=== PATIENT | male | born 1940 | race American Indian/Alaskan Native ===

== ENCOUNTER 2019-06-27 01:22 | Inpatient (IN) | payer MEDICARE, OTHER ==
[2019-06-27] MEDS ORDERED: HYDROmorphone 1 MG/1 ML INJ IV ONE ×3 (03:15→05:18)
[2019-06-27] MEDS ORDERED: ONDANSETRON 4 MG/2 ML INJ IV ONE ×2 (03:15→03:58)
[2019-06-27 03:33] LABS: Hematocrit 31.1 % (35.5-45.6); Mean Corpuscular HGB Conc 32 % (32-34); Mean Corpuscular Volume 87 fl (84-94); Platelet Count 213 K/mm3 (140-440); Red Blood Count 3.59 M/mm3 (3.65-5.03)
[2019-06-27 03:40] LABS: Red Cell Distribution Width 20.6 % (13.2-15.2)
[2019-06-27] MEDS ORDERED: SODIUM CHLORIDE IRRI 500 ML 500 ML IR ONE (03:48)
[2019-06-27 04:16] LABS: Calcium 9.2 mg/dL (8.4-10.2)
[2019-06-27] MEDS ORDERED: INSULIN REGULAR, HUMAN 100 UNITS/1 ML IV ONE (05:00)
--- NOTE | 2019-06-27 05:12 | Cat Scan Report ---
CT abdomen pelvis wo con INDICATION / CLINICAL INFORMATION: hematuria, urine retention, past hx of prostate ca. TECHNIQUE: Routine CT of the abdomen and pelvis without contrast All CT scans at this location are performed usi ng CT dose reduction for ALARA by means of automated exposure control. COMPARISON: None available. FINDINGS: Abdomen and pelvis the liver, gallbladder, spleen pancreas adrenal glands are unremarkable There is moderate bilateral hydroureteronephrosis. No free air or free fluid. Sigmoid diverticulosis without diverticulitis A large amount of hemorrhage and clot is seen distending the urinary bladder. A Marina catheter is in place with the balloon within the urinary bladder lumen. The prostate is grossly unremarkable within the limits of the noncontrast technique. No abdominal aortic aneurysm. Mild thoracolumbar type degene rative changes. The lumbar spine fracture is identified. IMPRESSION: Large amount of acute appearing hemorrhage and clot distending the urinary bladder lumen and causing at least mild obstruction of both ureters causing moderate bilateral hydroureteronephrosi s, as above. The prostate is normal in size but grossly unremarkable. No significant pelvic adenopath y. Signer Name: Stephan Felix MD Signed: 06/27/2019 5:08 AM Workstation Name: [id number]
--- NOTE | 2019-06-27 05:25 | Emergency Department Report ---
ED Male HPI - General Chief complaint: Urogenital-Male Stated complaint: DIFF URINATING Time Seen by Provider: 06/27/19 03:14 Source: patient Mode of arrival: Ambulatory Limitations: No Limitations - History of Present Illness Initial comments: 79-year-old male with past medical history of aortic valve replacement (not on anticoagulation), asthma, diabetes, COPD, retention, and prostate cancer currently in remission presents to Hospital of complaints of difficulty urinating and hematuria. Yesterday patient had to strain to urinate and felt like he was not completely emptying his bladder. Today he had increased difficulty urinating with gross hematuria. Patient complains of 10/10 pain to his pain is suprapubic area. He denies complaints of fever, nausea, or vomiting. Pt does take an ASA 81 mg daily. History of prostate cancer in 2007 treated with radiation and currently in remission. Patient was admitted to the [facility] last week for lower extremity edema. Doctor's are affiliated with the [facility]. - Related Data Allergies Allergy/AdvReac Type Severity Reaction Status Date / Time No Known Allergies Allergy Verified 06/27/19 03:52 ED Review of Systems ROS: Stated complaint: DIFF URINATING Other details as noted in HPI Comment: All other systems reviewed and negative ED Past Medical Hx - Past Medical History Previous Medical History?: Yes Hx Hypertension: Yes Hx Heart Attack/AMI: Yes Hx Diabetes: Yes Hx of Cancer: Yes Hx Arthritis: Yes Hx Asthma: Yes Hx COPD: Yes Additional medical history: prostate CA, - Surgical History Past Surgical History?: Yes Hx Open Heart Surgery: Yes (aortic valve replacement) Additional Surgical History: Trach in past - Social History Smoking Status: Never Smoker Substance Use Type: None ED Physical Exam - General Limitations: No Limitations - Other Other exam information: General: No acute distress Head: Atraumatic Eyes: normal appearance ENT: Moist mucous membranes Neck: Normal appearance, no midline tenderness Chest: Clear to auscultation bilaterally CV: Regular rate and rhythm Abdomen: Soft, normal bowel sounds, suprapubic tenderness, nondistended, no rebound or guarding : No testicular tenderness, Marina placed in the ED with gross hematuria Back: Normal inspection Extremity: Normal inspection infection, full range of motion Neuro: Alert O x 3, no facial asymmetry, speech clear, no gross motor sensory deficit Psych: Appropriate behavior Skin: No rash ED Course Vital Signs 06/27/19 06/27/19 06/27/19 01:27 02:59 03:00 Temperature 98.3 F 98.3 F Pulse Rate 93 H 79 82 Respiratory 22 17 19 Rate Blood Pressure 134/55 166/76 Blood Pressure 130/70 [Left] O2 Sat by Pulse 97 99 99 Oximetry 06/27/19 06/27/19 04:00 04:30 Temperature Pulse Rate 78 84 Respiratory 11 L 17 Rate Blood Pressure 142/76 142/77 Blood Pressure [Left] O2 Sat by Pulse 96 95 Oximetry - Consultations Consultation #1: 06/27/19 05:[address] Levin urology, will consult during admission ED Medical Decision Making - Lab Data Result diagrams: 06/27/19 03:19 06/27/19 03:19 Lab Results 06/27/19 06/27/19 06/27/19 Range/Units 03:19 03:19 05:25 WBC 13.8 H (4.5-11.0) K/mm3 RBC 3.59 L (3.65-5.03) M/mm3 Hgb 10.0 L (11.8-15.2) gm/dl Hct 31.1 L (35.5-45.6) % MCV 87 (84-94) fl MCH 28 (28-32) pg MCHC 32 (32-34) % RDW 20.6 H (13.2-15.2) % Plt Count 213 (140-440) K/mm3 Sodium 136 L (137-145) mmol/L Potassium 4.4 (3.6-5.0) mmol/L Chloride 94.3 L (98-107) mmol/L Carbon Dioxide 25 (22-30) mmol/L Anion Gap 21 mmol/L BUN 49 H (9-20) mg/dL Creatinine 2.3 H (0.8-1.5) mg/dL Estimated GFR 34 ml/min BUN/Creatinine Ratio 21 % Glucose 344 H (75-100) mg/dL POC Glucose 349 H (70-105) Calcium 9.2 (8.4-10.2) mg/dL - Radiology Data Radiology results: report reviewed CT abdomen pelvis wo con INDICATION / CLINICAL INFORMATION: hematuria, urine retention, past hx of prostate ca. TECHNIQUE: Routine CT of the abdomen and pelvis without contrast All CT scans at this location are performed using CT dose reduction for ALARA by means of automated exposure control. COMPARISON: None available. FINDINGS: Abdomen and pelvis the liver, gallbladder, spleen pancreas adrenal glands are unremarkable There is moderate bilateral hydroureteronephrosis. No free air or free fluid. Sigmoid diverticulosis without diverticulitis A large amount of hemorrhage and clot is seen distending the urinary bladder. A Marina catheter is in place with the balloon within the urinary bladder lumen. The prostate is grossly unremarkable within the limits of the noncontrast technique. No abdominal aortic aneurysm. Mild thoracolumbar type degenerative changes. The lumbar spine fracture is identified. IMPRESSION: Large amount of acute appearing hemorrhage and clot distending the urinary bladder lumen and causing at least mild obstruction of both ureters causing moderate bilateral hydroureteronephrosis, as above. The prostate is normal in size but grossly unremarkable. No significant pelvic adenopathy. - Medical Decision Making Patient presents to the Hospital gross hematuria, urinary retention, and renal insufficiency with signs of hydronephrosis on CT. Patient denies known history of renal insufficiency. Patient also given insulin for uncontrolled diabetes - Differential Diagnosis UTI, cancer, hemorrhagic cystitis, coagulopathy Critical Care Time: No Critical care attestation.: If time is entered above; I have spent that time in minutes in the direct care of this critically ill patient, excluding procedure time. ED Disposition Clinical Impression: Hematuria, Urine retention, Renal insufficiency, Hx of prostatic malignancy, Uncontrolled diabetes mellitus Disposition: OP ADMIT IP TO THIS HOSP Is pt being admited?: Yes Condition: Stable Instructions: Diabetes Mellitus Type 2 in Adults (ED) Referrals: PRIMARY CARE, [Primary Care Provider] - 3-5 Days Time of Disposition: 05:25 (DR Yusuf/hosp)
[2019-06-27] MEDS ORDERED: SODIUM CHLORIDE 0.9% IRR 500 ML BOTTLE IR ONE (05:28)
[2019-06-27 05:51] LABS: Bacteria,Urine 1+ /HPF (Negative); Bilirubin,Urine NEG (Negative); Blood,Urine LG (Negative); Color,Urine Yellow (Yellow)
[2019-06-27 05:52] LABS: RBC,Urine > 182.0 /HPF (0.0-6.0)
[2019-06-27 06:24] LABS: Anisocytosis 1+; Basophils % (Manual) 0 % (0.0-1.8); Platelet Estimate Consistent w Auto; Total Cells Counted 100
--- NOTE | 2019-06-27 06:33 | History and Physical Report ---
History of Present Illness Date of examination: 06/27/19 History of present illness: 79-year-old man with a history of hypertension, diabetes, coronary artery disease, asthma, COPD, prostate cancer comes emergency room with complaints of of urinating blood and having difficulty urinating. Complain of lower abdominal pain over the bladder with started yesterday, sharp, constant, intensity 7/10, no radiation, can't identify exacerbating factor. Admits to fever. eview Of Systems: Constitutional: no weight loss, fever, chills Ears, eyes, nose, mouth and throat: no nasal congestion, no nasal discharge, no sinus pressure, blurry vision, diplopia Neck: No neck pain or rigidity. Cardiovascular: No palpitations, chest pain Respiratory: No shortness of breath, cough Gastrointestinal: No hematochezia, abdominal pain Genitourinary : no dysuria, frequency Musculoskeletal: no muscle ache , joint pain Integumentary: no rash, no pruritis Neurological: no parathesias, focal weakness Endocrine: no cold or heat intolerance, no polyuria or polydipsia Hematologic/Lymphatic: no easy bruising, no easy bleeding, no gland swelling Allergic/Immunologic: no urticaria, no angioedema. PAST MEDICAL HISTORY:hypertension, diabetes, coronary artery disease, asthma, [place] PD, prostate cancer PAST SURGICAL HISTORY: Valve replacement FAMILY HISTORY:hypertension, diabetes SOCIAL HISTORY: Denies tobacco, drugs, alcohol Medications and Allergies Allergies Allergy/AdvReac Type Severity Reaction Status Date / Time No Known Allergies Allergy Verified 06/27/19 03:52 Home Medications Medication Instructions Recorded Confirmed Last Taken Type Aspirin [Aspirin BABY CHEW TAB] 1 tab PO DAILY 06/27/19 06/27/19 Unknown History Atorvastatin Calcium [Lipitor] 1 tab PO DAILY 06/27/19 06/27/19 Unknown History Carvedilol [Coreg] 25 mg PO BID 06/27/19 06/27/19 Unknown History Insulin Aspart [Novolog Flexpen] 15 unit SQ DAILY 06/27/19 06/27/19 Unknown History Sertraline [Zoloft] 50 mg PO QDAY 06/27/19 06/27/19 Unknown History Terazosin HCl 1 tab PO QHS 06/27/19 06/27/19 Unknown History Torsemide [Demadex] 1 tab PO BID 06/27/19 06/27/19 Unknown History hydrALAZINE [Apresoline] 2 tab PO Q8HR 06/27/19 06/27/19 Unknown History Exam - Physical Exam Narrative exam: General Apperance: The patient sitting in bed no acute distress HEENT: Normocephalic, atraumatic. Pupils equally round and reactive to light, extraocular movement intact, and no sclericterus or JVD or thyromegaly or nodule. Neck supple, no carotid bruit, mucous membranes moist, no exudate or erythema Heart: S1-S2, regular is rhythm Lungs: Clear to auscultation bilaterally, breathing comfortable Abdomen: Positive bowel sounds, soft, nontender, nondistended, no organomegaly Extremities: No edema cyanosis clubbing Skin: no rash, nodule, warm and dry Neuro:CN 2 -12 intact, motor/sensory intact, speech is fluent - Constitutional Vitals: Temp Pulse Resp BP Pulse Ox 98.3 F 76 12 142/77 93 06/27/19 02:59 06/27/19 05:30 06/27/19 05:30 06/27/19 05:30 06/27/19 05:30 Results - Labs CBC & Chem 7: 06/27/19 03:19 06/27/19 03:19 Labs: Abnormal lab results 06/27/19 06/27/19 06/27/19 Range/Units 03:19 03:19 05:09 WBC 13.8 H (4.5-11.0) K/mm3 RBC 3.59 L (3.65-5.03) M/mm3 Hgb 10.0 L (11.8-15.2) gm/dl Hct 31.1 L (35.5-45.6) % RDW 20.6 H (13.2-15.2) % Seg Neuts % (Manual) 86.0 H (40.0-70.0) % Lymphocytes % (Manual) 10.0 L (13.4-35.0) % Seg Neutrophils # Man 11.9 H (1.8-7.7) K/mm3 Sodium 136 L (137-145) mmol/L Chloride 94.3 L (98-107) mmol/L BUN 49 H (9-20) mg/dL Creatinine 2.3 H (0.8-1.5) mg/dL Glucose 344 H (75-100) mg/dL POC Glucose (70-105) Urine WBC (Auto) 82.0 H (0.0-6.0) /HPF 06/27/19 Range/Units 05:25 WBC (4.5-11.0) K/mm3 RBC (3.65-5.03) M/mm3 Hgb (11.8-15.2) gm/dl Hct (35.5-45.6) % RDW (13.2-15.2) % Seg Neuts % (Manual) (40.0-70.0) % Lymphocytes % (Manual) (13.4-35.0) % Seg Neutrophils # Man (1.8-7.7) K/mm3 Sodium (137-145) mmol/L Chloride (98-107) mmol/L BUN (9-20) mg/dL Creatinine (0.8-1.5) mg/dL Glucose (75-100) mg/dL POC Glucose 349 H (70-105) Urine WBC (Auto) (0.0-6.0) /HPF - Imaging and Cardiology CT scan - abdomen: report reviewed CT scan - pelvis: report reviewed Assessment and Plan Assessment Hematuria Hydroureteronephrosis Tract infection Hypertension Coronary artery disease Diabetes COPD History of prostate cancer Plan Admit to medicine Start IV fluid, IV Rocephin, urology was consulted to see the patient Check fingersticks initiate insulin sliding site Continue appropriate outpatient medication DVT prophylaxis
[2019-06-27] MEDS ORDERED: ACETAMINOPHEN 325 MG TAB PO PRN (06:34)
[2019-06-27] MEDS ORDERED: DEXTROSE 50% IN WATER (25GM) 50 ML SYRINGE IV PRN (06:34)
[2019-06-27] MEDS ORDERED: MORPHINE 2 MG/1 ML INJ IV PRN (08:30)
[2019-06-27] MEDS ORDERED: ONDANSETRON 4 MG/2 ML INJ IV PRN (08:30)
[2019-06-27] MEDS: SODIUM CHLORIDE 0.45% 1000 ML 1,000 ML IV SCH (10:17)
[2019-06-27] MEDS: HYDROmorphone 1 MG/1 ML INJ IV PRN ×2 (11:18→16:20)
[2019-06-27] MEDS: INSULIN LISPRO 100 UNIT/ML SUB-Q SCH ×2 (11:37→18:30)
--- NOTE | 2019-06-27 13:06 | Consultation ---
History of Present Illness - Reason for Consult Consult date: 06/27/19 - History of Present Illness NEW PT TO OUR [facility] 79-year-old male with past medical history of aortic valve replacement (not on anticoagulation), asthma, diabetes, COPD, retention, and prostate cancer (TREATED IN [place]) currently in remission presents to Hospital of complaints of difficulty urinating and hematuria. Yesterday patient had to strain to urinate and felt like he was not completely emptying his bladder. Today he had increased difficulty urinating with gross hematuria. Patient complains of 10/10 pain to his pain is suprapubic area. He denies complaints of fever, nausea, or vomiting. Pt does take an ASA 81 mg daily. History of prostate cancer in 2007 treated with radiation and currently in remission. Patient was admitted to the [facility] last week for lower extremity edema. Doctor's are affiliated with the [place]. PT ALSO HAS A HEART VALVE CT abdomen pelvis wo con INDICATION / CLINICAL INFORMATION: hematuria, urine retention, past hx of prostate ca. TECHNIQUE: Routine CT of the abdomen and pelvis without contrast All CT scans at this location are performed using CT do se reduction for ALARA by means of automated exposure control. COMPARISON: None available. FINDINGS: Abdomen and pelvis the liver, gallbladder, spleen pancreas adrenal glands are unremarkable There is moderate bilateral hydroureteronephrosis. No free air or free fluid. Sigmoid diverticulosis without diverticulitis A large amount of hemorrhage and clot is seen distending the urinary bladder. A Charles catheter is in place with the balloon within the urinary bladder lumen. The prostate is grossly unremarkable within the limits of the noncontrast technique. No abdominal aortic aneurysm. Mild thoracolumbar type degenerative changes. The lumbar spine fracture is identified. IMPRESSION: Large amount of acute appearing hemorrhage and clot distending the urinary bladder lumen and causing at least mild obstruction of both ureters causing moderate bilateral hydroureteronephrosis, as above. The prostate is normal in size but grossly unremarkable. No significant pelvic adenopathy ABD SOFT UNCIRC PHALLUS----16F CHARLES CHNGE TO 26F --3WAY TO HARRIS DRIP (DARK URINE RETURN) A/P GROSS HEMATURIA CREATININE 2.3 CONTINUE CHARLES Medications and Allergies Allergies Allergy/AdvReac Type Severity Reaction Status Date / Time No Known Allergies Allergy Verified 06/27/19 03:52 Home Medications Medication Instructions Recorded Confirmed Last Taken Type Aspirin [Aspirin BABY CHEW TAB] 1 tab PO DAILY 06/27/19 06/27/19 Unknown History Atorvastatin Calcium [Lipitor] 1 tab PO DAILY 06/27/19 06/27/19 Unknown History Carvedilol [Coreg] 25 mg PO BID 06/27/19 06/27/19 Unknown History Insulin Aspart [Novolog Flexpen] 15 unit SQ DAILY 06/27/19 06/27/19 Unknown History Sertraline [Zoloft] 50 mg PO QDAY 06/27/19 06/27/19 Unknown History Terazosin HCl 1 tab PO QHS 06/27/19 06/27/19 Unknown History Torsemide [Demadex] 1 tab PO BID 06/27/19 06/27/19 Unknown History hydrALAZINE [Apresoline] 2 tab PO Q8HR 06/27/19 06/27/19 Unknown History Active Meds: Active Medications Acetaminophen (Tylenol) 650 mg PO Q4H PRN PRN Reason: Pain MILD(1-3)/Fever >100.5/SIFUENTES Dextrose (D50w (25gm) Syringe) 50 ml IV Q30MIN PRN PRN Reason: Hypoglycemia Hydromorphone HCl (Dilaudid) 1 mg IV Q3H PRN PRN Reason: Pain , Severe (7-10) Last Admin: 06/27/19 11:18 Dose: 1 mg Documented by: Sodium Chloride (Nacl 0.45% 1000 Ml) 1,000 mls @ 75 mls/hr IV DIRECT JONES Last Admin: 06/27/19 10:17 Dose: 75 mls/hr Documented by: Insulin Human Lispro (Humalog) 0 unit SUB-Q Q6HR JONES; Protocol Last Admin: 06/27/19 11:37 Dose: 5 unit Documented by: Ondansetron HCl (Zofran) 4 mg IV Q8H PRN PRN Reason: Nausea And Vomiting Last Admin: 06/27/19 08:26 Dose: 4 mg Documented by: Sodium Chloride (Sodium Chloride Flush Syringe 10 Ml) 10 ml IV BID JONES Last Admin: 06/27/19 10:22 Dose: 10 ml Documented by: Sodium Chloride (Sodium Chloride Flush Syringe 10 Ml) 10 ml IV PRN PRN PRN Reason: LINE FLUSH Stop: 07/07/19 06:33 Exam - Constitutional Vitals: Temp Pulse Resp BP Pulse Ox 98.3 F 74 18 144/68 94 06/27/19 02:59 06/27/19 10:00 06/27/19 11:18 06/27/19 09:05 06/27/19 10:00 Results - Labs CBC & Chem 7: 06/27/19 03:19 06/27/19 03:19 Labs: Abnormal lab results 06/27/19 06/27/19 06/27/19 Range/Units 03:19 03:19 05:09 WBC 13.8 H (4.5-11.0) K/mm3 RBC 3.59 L (3.65-5.03) M/mm3 Hgb 10.0 L (11.8-15.2) gm/dl Hct 31.1 L (35.5-45.6) % RDW 20.6 H (13.2-15.2) % Seg Neuts % (Manual) 86.0 H (40.0-70.0) % Lymphocytes % (Manual) 10.0 L (13.4-35.0) % Seg Neutrophils # Man 11.9 H (1.8-7.7) K/mm3 Sodium 136 L (137-145) mmol/L Chloride 94.3 L (98-107) mmol/L BUN 49 H (9-20) mg/dL Creatinine 2.3 H (0.8-1.5) mg/dL Glucose 344 H (75-100) mg/dL POC Glucose (70-105) Urine WBC (Auto) 82.0 H (0.0-6.0) /HPF 06/27/19 06/27/19 06/27/19 Range/Units 05:25 08:02 11:39 WBC (4.5-11.0) K/mm3 RBC (3.65-5.03) M/mm3 Hgb (11.8-15.2) gm/dl Hct (35.5-45.6) % RDW (13.2-15.2) % Seg Neuts % (Manual) (40.0-70.0) % Lymphocytes % (Manual) (13.4-35.0) % Seg Neutrophils # Man (1.8-7.7) K/mm3 Sodium (137-145) mmol/L Chloride (98-107) mmol/L BUN (9-20) mg/dL Creatinine (0.8-1.5) mg/dL Glucose (75-100) mg/dL POC Glucose 349 H 297 H 383 H (70-105) Urine WBC (Auto) (0.0-6.0) /HPF
--- NOTE | 2019-06-27 14:59 | Event Note ---
Date: 06/27/19 Patient was admitted earlier this morning for the management of hematuria and lower abdominal pain. Urology evaluated the patient. Continue management as outlined per H&P.
[2019-06-27] MEDS ORDERED: SODIUM CHLORIDE 0.9% IRR 1,000 ML BOTTLE IR PRN (16:40)
--- NOTE | 2019-06-27 18:22 | Anesthesia Consultation ---
Anesthesia Consult and Med Hx Date of service: 06/27/19 - Airway Anesthetic Teeth Evaluation: Poor (Unable to assess airway because patient drowsy and not cooperative) ROM Head & Neck: Adequate (Has had a trach in the past) - Pre-Operative Health Status ASA Pre-Surgery Classification: ASA4, Emergency Proposed Anesthetic Plan: General - Pulmonary Hx Smoking: No Hx Asthma: Yes COPD: Yes - Cardiovascular System Hx Hypertension: Yes Hx Coronary Artery Disease: Yes Hx Heart Attack/AMI: Yes Hx Valvular Heart Disease: Yes (AVR) - Endocrine Hx Renal Disease: Yes (CRI-Cr-2.3) Hx Insulin Dependent Diabetes: Yes (Uncontrolled-BS 380) - Other Systems Hx Cancer: Yes - Additional Comments Anesthesia Medical History Comments: EMERGENCY case per Dr. Cook and opening second OR. I spoke with patient's on the phone
--- NOTE | 2019-06-27 18:29 | Event Note ---
Date: 06/27/19 afternoon rounds pt bermudez not draining well won't irrigate pt distended needs cysto , clot retention - pt unsure what to do (pt received sedation prior to my visit) I spoke with on phone she gave consent to proceed
--- NOTE | 2019-06-27 19:11 | Anesthesia Day of Surgery ---
Anesthesia Day of Surgery - Day of Surgery Patient Examined: Yes Patient H&P Reviewed: Yes Patient is NPO: Yes
[2019-06-27] MEDS ORDERED: LIDOCAINE MPF (2%) 20 MG/1 ML VIAL 5 ML ONE (19:28)
[2019-06-27] MEDS ORDERED: ETOMIDATE 20 MG/10 ML INJ IV ONE (19:28)
[2019-06-27] MEDS ORDERED: fentaNYL 100 MCG/2 ML INJ ONE (19:28)
[2019-06-27 19:32] LABS: INR 1.13 (0.87-1.13)
[2019-06-27 19:33] LABS: Partial Thromboplastin Time 21.5 Sec. (24.2-36.6)
--- NOTE | 2019-06-27 20:17 | Post Operative Note ---
Date of procedure: 06/27/19 Pre-op diagnosis: clot retention, prostate cancer Post-op diagnosis: same Procedure: cysto, clot evacuation, cystogram Surgeon: MATTHEW PAREKH Estimated blood loss: 50-100ml (evacuated 500cc clot)
[2019-06-27] MEDS ORDERED: dexAMETHasone 20 MG/5 ML VIAL ONE (20:21)
[2019-06-27] MEDS ORDERED: SUCCINYLCHOLINE CHLORIDE 200 MG/10 ML INJ MDV ONE (20:21)
[2019-06-27] MEDS ORDERED: ONDANSETRON 4 MG/2 ML INJ ONE (20:21)
--- NOTE | 2019-06-27 20:32 | Fluoroscopy Report ---
3 fluoroscopic images submitted Indication: Intraoperative localization Impression: 3 images of the abdomen were submitted for documentation purposes with radiology involve patricia. Cystogram was performed utilizing approximately 30 mL of Omnipaque 300. Patient reportedly has a history of prostate cancer and clot evacuation was performed. Please refer to operative note for c omplete details. Fluoroscopic time: 0.1 minutes Signer Name: Hardeep Mendes MD Signed: 06/27/2019 8:28 PM Workstation Name: [id number]
[2019-06-27 21:06] LABS: Basophils # (Auto) 0.1 K/mm3 (0.0-0.1); Basophils % (Auto) 0.6 % (0.0-1.8); Hemoglobin 8.8 gm/dl (11.8-15.2); Lymphocytes # (Auto) 0.6 K/mm3 (1.2-5.4); Lymphocytes % (Auto) 3.8 % (13.4-35.0); Mean Corpuscular HGB Conc 32 % (32-34); Mean Corpuscular Volume 90 fl (84-94); Monocytes # (Auto) 0.9 K/mm3 (0.0-0.8); Monocytes % (Auto) 5.6 % (0.0-7.3); Red Blood Count 3.12 M/mm3 (3.65-5.03)
[2019-06-27 21:23] LABS: Calcium 8.6 mg/dL (8.4-10.2)
[2019-06-27] MEDS ORDERED: INSULIN REGULAR, HUMAN 100 UNITS/1 ML ONE (21:23)
[2019-06-27 21:28] LABS: Red Cell Distribution Width 20.9 % (13.2-15.2)
[2019-06-27] MEDS ORDERED: SODIUM CHLORIDE IRRI 1000 ML 1,000 ML IR ONE (21:28)
[2019-06-27 21:29] LABS: Platelet Count 192 K/mm3 (140-440)
--- NOTE | 2019-06-27 22:20 | Post Anesthesia Evaluation ---
- Post Anesthesia Evaluation Patient Participated: Yes Airway Patent: Yes Stable Respiratory Function: Yes Nausea/Vomiting: No Temp > 96.8F: Yes Pain Manageable: Yes Adequeate Hydration: Yes Anesthesia Complications: No Block Receding Appropriately: Not Applicable Patient on Ventilator: No
[2019-06-27] MEDS ORDERED: SODIUM CHLORIDE 0.9% 500 ML 500 ML IV ONE (23:40)
[2019-06-28] MEDS ORDERED: WATER FOR IRRIG STERILE 1,000 ML BOTTLE ONE (01:45)
[2019-06-28] MEDS ORDERED: SODIUM CHLORIDE 0.9% 500 ML 500 ML IV ONE (01:51)
--- NOTE | 2019-06-28 02:02 | Progress Note ---
Subjective Date of service: 06/28/19 Interval history: spoke with in pacu irrigated clots pink tinged 20cc in 30cc balloon A/P prostate ca s/p radiation diabetes heart valve (on ASA) stop ASA 6 pack platelets continue cross drip manual irrigation q 2hours & prn Objective - Constitutional Vitals: Vital Signs - 12hr 06/27/19 06/27/19 06/27/19 15:28 20:30 20:35 Temperature 97.4 F L Pulse Rate 97 H 93 H Respiratory 20 21 Rate Blood Pressure 149/69 123/59 O2 Sat by Pulse 95 95 93 Oximetry 06/27/19 06/27/19 06/27/19 20:40 20:45 20:50 Temperature Pulse Rate 93 H 93 H 96 H Respiratory 20 15 21 Rate Blood Pressure 126/54 132/58 153/72 O2 Sat by Pulse 94 93 94 Oximetry 06/27/19 06/27/19 06/27/19 20:55 21:00 21:15 Temperature Pulse Rate 94 H 96 H 94 H Respiratory 18 17 17 Rate Blood Pressure 162/70 153/79 149/74 O2 Sat by Pulse 93 93 93 Oximetry 06/27/19 06/27/19 06/27/19 21:30 21:45 22:00 Temperature 97.6 F Pulse Rate 99 H 102 H 98 H Respiratory 18 22 24 Rate Blood Pressure 119/67 114/72 123/79 O2 Sat by Pulse 93 96 92 Oximetry 06/27/19 06/27/19 06/27/19 22:15 22:30 22:45 Temperature Pulse Rate 103 H 96 H 97 H Respiratory 22 15 18 Rate Blood Pressure 115/79 126/68 142/83 O2 Sat by Pulse 96 92 95 Oximetry 06/27/19 06/27/19 06/27/19 22:52 23:00 23:30 Temperature 97.8 F Pulse Rate 95 H 106 H Respiratory 22 15 Rate Blood Pressure 135/73 151/84 O2 Sat by Pulse 98 98 Oximetry 06/28/19 06/28/19 00:00 00:15 Temperature 98 F Pulse Rate 108 H 101 H Respiratory 18 Rate Blood Pressure 109/67 139/83 O2 Sat by Pulse 93 Oximetry - Labs CBC & Chem 7: 06/27/19 Unknown 06/27/19 Unknown Labs: Abnormal lab results 06/27/19 06/27/19 06/27/19 Range/Units 00:20 03:19 03:19 WBC 13.8 H (4.5-11.0) K/mm3 RBC 3.59 L (3.65-5.03) M/mm3 Hgb 10.0 L (11.8-15.2) gm/dl Hct 31.1 L (35.5-45.6) % RDW 20.6 H (13.2-15.2) % Lymph % (Auto) (13.4-35.0) % Lymph # (1.2-5.4) K/mm3 [place] # (0.0-0.8) K/mm3 Seg Neutrophils % (40.0-70.0) % Seg Neuts % (Manual) 86.0 H (40.0-70.0) % Lymphocytes % (Manual) 10.0 L (13.4-35.0) % Seg Neutrophils # (1.8-7.7) K/mm3 Seg Neutrophils # Man 11.9 H (1.8-7.7) K/mm3 APTT (24.2-36.6) Sec. Sodium 136 L (137-145) mmol/L Chloride 94.3 L (98-107) mmol/L BUN 49 H (9-20) mg/dL Creatinine 2.3 H (0.8-1.5) mg/dL Glucose 344 H (75-100) mg/dL POC Glucose (70-105) Urine WBC (Auto) (0.0-6.0) /HPF Crossmatch See Detail 06/27/19 06/27/19 06/27/19 Range/Units 05:09 05:25 08:02 WBC (4.5-11.0) K/mm3 RBC (3.65-5.03) M/mm3 Hgb (11.8-15.2) gm/dl Hct (35.5-45.6) % RDW (13.2-15.2) % Lymph % (Auto) (13.4-35.0) % Lymph # (1.2-5.4) K/mm3 [place] # (0.0-0.8) K/mm3 Seg Neutrophils % (40.0-70.0) % Seg Neuts % (Manual) (40.0-70.0) % Lymphocytes % (Manual) (13.4-35.0) % Seg Neutrophils # (1.8-7.7) K/mm3 Seg Neutrophils # Man (1.8-7.7) K/mm3 APTT (24.2-36.6) Sec. Sodium (137-145) mmol/L Chloride (98-107) mmol/L BUN (9-20) mg/dL Creatinine (0.8-1.5) mg/dL Glucose (75-100) mg/dL POC Glucose 349 H 297 H (70-105) Urine WBC (Auto) 82.0 H (0.0-6.0) /HPF Crossmatch 06/27/19 06/27/19 06/27/19 Range/Units 11:39 17:53 18:41 WBC (4.5-11.0) K/mm3 RBC (3.65-5.03) M/mm3 Hgb (11.8-15.2) gm/dl Hct (35.5-45.6) % RDW (13.2-15.2) % Lymph % (Auto) (13.4-35.0) % Lymph # (1.2-5.4) K/mm3 [place] # (0.0-0.8) K/mm3 Seg Neutrophils % (40.0-70.0) % Seg Neuts % (Manual) (40.0-70.0) % Lymphocytes % (Manual) (13.4-35.0) % Seg Neutrophils # (1.8-7.7) K/mm3 Seg Neutrophils # Man (1.8-7.7) K/mm3 APTT 21.5 L (24.2-36.6) Sec. Sodium (137-145) mmol/L Chloride (98-107) mmol/L BUN (9-20) mg/dL Creatinine (0.8-1.5) mg/dL Glucose (75-100) mg/dL POC Glucose 383 H 380 H (70-105) Urine WBC (Auto) (0.0-6.0) /HPF Crossmatch 06/27/19 06/27/19 06/27/19 Range/Units 21:24 22:20 23:22 WBC (4.5-11.0) K/mm3 RBC (3.65-5.03) M/mm3 Hgb (11.8-15.2) gm/dl Hct (35.5-45.6) % RDW (13.2-15.2) % Lymph % (Auto) (13.4-35.0) % Lymph # (1.2-5.4) K/mm3 [place] # (0.0-0.8) K/mm3 Seg Neutrophils % (40.0-70.0) % Seg Neuts % (Manual) (40.0-70.0) % Lymphocytes % (Manual) (13.4-35.0) % Seg Neutrophils # (1.8-7.7) K/mm3 Seg Neutrophils # Man (1.8-7.7) K/mm3 APTT (24.2-36.6) Sec. Sodium (137-145) mmol/L Chloride (98-107) mmol/L BUN (9-20) mg/dL Creatinine (0.8-1.5) mg/dL Glucose (75-100) mg/dL POC Glucose 405 H 318 H 259 H (70-105) Urine WBC (Auto) (0.0-6.0) /HPF Crossmatch 06/27/19 06/27/19 Range/Units Unknown Unknown WBC 16.8 H (4.5-11.0) K/mm3 RBC 3.12 L (3.65-5.03) M/mm3 Hgb 8.8 L (11.8-15.2) gm/dl Hct 28.0 L (35.5-45.6) % RDW 20.9 H (13.2-15.2) % Lymph % (Auto) 3.8 L (13.4-35.0) % Lymph # 0.6 L (1.2-5.4) K/mm3 [place] # 0.9 H (0.0-0.8) K/mm3 Seg Neutrophils % 90.0 H (40.0-70.0) % Seg Neuts % (Manual) (40.0-70.0) % Lymphocytes % (Manual) (13.4-35.0) % Seg Neutrophils # 15.1 H (1.8-7.7) K/mm3 Seg Neutrophils # Man (1.8-7.7) K/mm3 APTT (24.2-36.6) Sec. Sodium (137-145) mmol/L Chloride 97.3 L (98-107) mmol/L BUN 60 H (9-20) mg/dL Creatinine 3.7 H D (0.8-1.5) mg/dL Glucose 360 H (75-100) mg/dL POC Glucose (70-105) Urine WBC (Auto) (0.0-6.0) /HPF Crossmatch Medications & Allergies - Medications Allergies/Adverse Reactions: Allergies No Known Allergies Allergy (Verified 06/27/19 03:52) Home Medications: Home Medications Medication Instructions Recorded Confirmed Last Taken Type Aspirin [Aspirin BABY CHEW TAB] 1 tab PO DAILY 06/27/19 06/27/19 Unknown History Atorvastatin Calcium [Lipitor] 1 tab PO DAILY 06/27/19 06/27/19 Unknown History Carvedilol [Coreg] 25 mg PO BID 06/27/19 06/27/19 Unknown History Insulin Aspart [Novolog Flexpen] 15 unit SQ DAILY 06/27/19 06/27/19 Unknown History Sertraline [Zoloft] 50 mg PO QDAY 06/27/19 06/27/19 Unknown History Terazosin HCl 1 tab PO QHS 06/27/19 06/27/19 Unknown History Torsemide [Demadex] 1 tab PO BID 06/27/19 06/27/19 Unknown History hydrALAZINE [Apresoline] 2 tab PO Q8HR 06/27/19 06/27/19 Unknown History Active Medications: Generic Name Dose Route Start Last Admin Trade Name Freq PRN Reason Stop Dose Admin Acetaminophen 650 mg 06/27/19 06:34 Tylenol PO Q4H PRN Pain MILD(1-3)/Fever >100.5/SIFUENTES Dextrose 50 ml 06/27/19 06:34 D50w (25gm) Syringe IV Q30MIN PRN Hypoglycemia Hydromorphone HCl 1 mg 06/27/19 10:41 06/27/19 16:20 Dilaudid IV 1 mg Q3H PRN Administration Pain , Severe (7-10) Sodium Chloride 1,000 mls @ 75 mls/hr 06/27/19 08:30 06/27/19 10:17 Nacl 0.45% 1000 Ml IV 75 mls/hr DIRECT JONES Administration Insulin Human Lispro 0 unit 06/27/19 12:00 06/27/19 18:30 Humalog SUB-Q 5 unit Q6HR JONES Administration Protocol Ondansetron HCl 4 mg 06/27/19 08:30 06/27/19 08:26 Zofran IV 4 mg Q8H PRN Administration Nausea And Vomiting Sodium Chloride 10 ml 06/27/19 10:00 06/27/19 10:22 Sodium Chloride Flush Syringe 10 Ml IV 10 ml BID JONES Administration Sodium Chloride 10 ml 06/27/19 06:34 Sodium Chloride Flush Syringe 10 Ml IV 07/07/19 06:33 PRN PRN LINE FLUSH Sodium Chloride 2,000 ml 06/27/19 14:00 Nacl 0.9% IR DIRECT JONES Sodium Chloride 1,000 ml 06/27/19 16:40 Nacl 0.9% IR PRN PRN Wound Care
[2019-06-28] MEDS ORDERED: FUROSEMIDE 40 MG/4 ML INJ IV ONE ×2 (03:22→08:00)
[2019-06-28] MEDS ORDERED: ALBUTEROL 2.5 MG/3 ML NEBU IH PRN (03:23)
--- NOTE | 2019-06-28 04:21 | Event Note ---
Date: 06/28/19 Called to bedside to assess patient. Patient was experiencing apneic episodes on nasal cannula. Patient has history of CODY with nocturnal use of BiPAP at home. Pt was placed on BiPaP with improvement. Pt has history of COPD. Ordered albuterol when necessary. On auscultation scattered crackles. Ordered one-time dose of IV Lasix.
[2019-06-28] MEDS ORDERED: SODIUM CHLORIDE 0.9% 250ML 250 ML ONE (05:17)
[2019-06-28 05:39] LABS: Hematocrit 27.3 % (35.5-45.6); Hemoglobin 8.7 gm/dl (11.8-15.2); Mean Corpuscular HGB Conc 32 % (32-34); Mean Corpuscular Volume 87 fl (84-94); Platelet Count 169 K/mm3 (140-440); Red Blood Count 3.14 M/mm3 (3.65-5.03); Red Cell Distribution Width 19.7 % (13.2-15.2)
[2019-06-28 05:55] LABS: Calcium 8.5 mg/dL (8.4-10.2)
[2019-06-28 06:55] LABS: Basophils % (Manual) 0 % (0.0-1.8); Eosinophils % (Manual) 0 % (0.0-4.3); Total Cells Counted 200
[2019-06-28 06:56] LABS: Anisocytosis 1+; Poikilocytosis 1+
[2019-06-28 06:57] LABS: Large Platelets 1+; Platelet Estimate Consistent w Auto
[2019-06-28] MEDS: INSULIN LISPRO 100 UNIT/ML SUB-Q SCH ×4 (07:30→18:16)
[2019-06-28] MEDS: SODIUM CHLORIDE 0.45% 1000 ML 1,000 ML IV SCH (07:32)
[2019-06-28] MEDS ORDERED: ceFAZolin/NS 1 GM/50 ML 1 GM/50 ML BAG IV SCH (09:21)
[2019-06-28] MEDS ORDERED: TORSEMIDE PO SCH (09:21)
[2019-06-28] MEDS ORDERED: TERAZOSIN HCL PO SCH (09:21)
[2019-06-28] MEDS: ALBUTEROL 2.5 MG/3 ML NEBU IH SCH ×2 (09:40→13:10)
[2019-06-28] MEDS ORDERED: INSULIN ASPART 15 UNIT SQ SCH (10:00)
[2019-06-28] MEDS ORDERED: ATORVASTATIN CALCIUM PO SCH (10:00)
[2019-06-28] MEDS: ceFAZolin/NS 1 GM/50 ML 1 GM/50 ML BAG IV SCH ×2 (12:20→22:59)
[2019-06-28] MEDS: SERTRALINE 50 MG TAB PO SCH (12:20)
[2019-06-28] MEDS: CARVEDILOL 25 MG TAB PO SCH ×3 (12:21→23:00)
[2019-06-28] MEDS: hydrALAZINE 25 MG TAB PO SCH ×3 (12:21→23:00)
[2019-06-28] MEDS ORDERED: ETOMIDATE 20 MG/10 ML INJ IV ONE ×3 (13:52→15:04)
[2019-06-28] MEDS ORDERED: LIDOCAINE MPF (2%) 20 MG/1 ML VIAL 5 ML ONE ×3 (13:53→15:04)
--- NOTE | 2019-06-28 14:01 | Event Note ---
Date: 06/28/19 1pm pt alittle uncomfortable abd distended bermudez difficult to irrigate laborer electroplating cancelled my platelet transfusion order pt needs cysto, clot evac pt with uncontrolled diabetes, s/p radiation for prostate ca, renal insuff, asa therapy for heart valve needs platelets
--- NOTE | 2019-06-28 14:15 | Operative Report ---
PREOPERATIVE DIAGNOSES: Clot retention. POSTOPERATIVE DIAGNOSES: Clot retention. PROCEDURE: Cystoscopy, clot evacuation, cystogram. SURGEON: Chip Cook MD ANESTHESIA: General. ESTIMATED BLOOD LOSS: Minimal. FLUIDS: Crystalloid. COMPLICATIONS: No complications. INDICATIONS: This patient is a 79-year-old gentleman presented to the Emergency Room in clot retention. [facility] No records were available. Per the patient, he has a history of prostate cancer, status post radiation therapy, diabetes, heart valve. Initially, he states he was on no anticoagulation therapy; however, he was on aspirin. Initially, a 16-Palestinian catheter was placed in the Emergency Room. On my exam, it clotted off. I exchanged it to a 26-Palestinian catheter, irrigated clear. Later in the day reevaluation, clot had reaccumulated despite a Jain drip, that point, he presents now for surgical intervention. DESCRIPTION OF PROCEDURE: The patient was taken to the operative suite, placed in a supine position. After adequate general anesthesia, placed in a dorsal lithotomy position, prepped and draped in a sterile fashion. Pancystourethroscopy was performed with a 22-Palestinian Storz cystoscope. Obvious clot. At that point, a 24-Palestinian sheath was placed, large volume clot, approximately 500 mL was evacuated from the bladder. Cystoscopy was then performed. No tumors, no stones were noted. Just some mild irritation of the bladder and prostate. No active bleeding could be appreciated. A 24-Palestinian 3-way catheter was placed to a Jain's drip. Rectal exam was benign. He was extubated and taken to recovery room. JOB# [id number] [facility]/KIM
[2019-06-28] MEDS ORDERED: fentaNYL 100 MCG/2 ML INJ ONE (15:05)
--- NOTE | 2019-06-28 15:20 | Progress Note ---
Assessment and Plan Assessment and plan: 79-year-old -[place] male with past medical history significant for prostate cancer status post radiation treatment presented to the emergency department complaining of hematuria. Hematuria - Urology consulted and did cystoscopy, after cystoscopy patient admitted to ICU - Catheterized - Management per urology - Urology ordered platelet transfusion, patient was on aspirin UTI - She is on cefazolin CHARO - Nephrology consulted Respiratory distress - Patient is on BiPAP DVT History Interval history: Patient was seen and evaluated this morning, patient was on BIPAP. Hospitalist Physical - Physical exam Narrative exam: Patient is on BiPAP. The patient appeared well nourished and normally developed. Vital signs as documented. Head exam is unremarkable. No scleral icterus . Neck is without jugular venous distension, thyromegaly, or carotid bruits. Lungs are clear to auscultation. Cardiac exam reveals regular rate and Rhythm. First and second heart sounds normal. No murmurs, rubs or gallops. Abdominal exam reveals normal bowel sounds, no masses, no organomegaly and no ao rtic enlargement. Extremities are nonedematous and both femoral and pedal pulses are normal. ; patient is catheterized and draining blood tinged urine. SOCIAL WORKER MASTERS: Alert - Constitutional Vitals: Temp Pulse Resp BP Pulse Ox 98.2 F 74 21 119/53 97 06/28/19 08:00 06/28/19 14:21 06/28/19 14:21 06/28/19 14:21 06/28/19 14:21 Results - Labs CBC & Chem 7: 06/28/19 04:59 06/28/19 04:59 Labs: Laboratory Last Values WBC 39.7 K/mm3 (4.5-11.0) H 06/28/19 04:59 RBC 3.14 M/mm3 (3.65-5.03) L 06/28/19 04:59 Hgb 8.7 gm/dl (11.8-15.2) L 06/28/19 04:59 Hct 27.3 % (35.5-45.6) L 06/28/19 04:59 MCV 87 fl (84-94) 06/28/19 04:59 MCH 28 pg (28-32) 06/28/19 04:59 MCHC 32 % (32-34) 06/28/19 04:59 RDW 19.7 % (13.2-15.2) H 06/28/19 04:59 Plt Count 169 K/mm3 (140-440) 06/28/19 04:59 Lymph % (Auto) 3.8 % (13.4-35.0) L 06/27/19 Unknown [place] % (Auto) 5.6 % (0.0-7.3) 06/27/19 Unknown Eos % (Auto) 0.0 % (0.0-4.3) 06/27/19 Unknown Baso % (Auto) 0.6 % (0.0-1.8) 06/27/19 Unknown Lymph # 0.6 K/mm3 (1.2-5.4) L 06/27/19 Unknown [place] # 0.9 K/mm3 (0.0-0.8) H 06/27/19 Unknown Eos # 0.0 K/mm3 (0.0-0.4) 06/27/19 Unknown Baso # 0.1 K/mm3 (0.0-0.1) 06/27/19 Unknown Add Manual Diff Complete 06/28/19 04:59 Total Counted 200 06/28/19 04:59 Seg Neutrophils % Block Engraver 06/28/19 04:59 Seg Neuts % (Manual) 98.0 % (40.0-70.0) H 06/28/19 04:59 Band Neutrophils % 0 % 06/28/19 04:59 Lymphocytes % (Manual) 1.0 % (13.4-35.0) L 06/28/19 04:59 Reactive Lymphs % (Man) 0 % 06/28/19 04:59 Monocytes % (Manual) 1.0 % (0.0-7.3) 06/28/19 04:59 Eosinophils % (Manual) 0 % (0.0-4.3) 06/28/19 04:59 Basophils % (Manual) 0 % (0.0-1.8) 06/28/19 04:59 Metamyelocytes % 0 % 06/28/19 04:59 Myelocytes % 0 % 06/28/19 04:59 Promyelocytes % 0 % 06/28/19 04:59 Blast Cells % 0 % 06/28/19 04:59 Nucleated RBC % Not Reportable 06/28/19 04:59 Seg Neutrophils # 15.1 K/mm3 (1.8-7.7) H 06/27/19 Unknown Seg Neutrophils # Man 38.9 K/mm3 (1.8-7.7) H 06/28/19 04:59 Band Neutrophils # 0.0 K/mm3 06/28/19 04:59 Lymphocytes # (Manual) 0.4 K/mm3 (1.2-5.4) L 06/28/19 04:59 Abs React Lymphs (Man) 0.0 K/mm3 06/28/19 04:59 Monocytes # (Manual) 0.4 K/mm3 (0.0-0.8) 06/28/19 04:59 Eosinophils # (Manual) 0.0 K/mm3 (0.0-0.4) 06/28/19 04:59 Basophils # (Manual) 0.0 K/mm3 (0.0-0.1) 06/28/19 04:59 Metamyelocytes # 0.0 K/mm3 06/28/19 04:59 Myelocytes # 0.0 K/mm3 06/28/19 04:59 Promyelocytes # 0.0 K/mm3 06/28/19 04:59 Blast Cells # 0.0 K/mm3 06/28/19 04:59 WBC Morphology Not Reportable 06/28/19 04:59 Hypersegmented Neuts Not Reportable 06/28/19 04:59 Hyposegmented Neuts Not Reportable 06/28/19 04:59 Hypogranular Neuts Not Reportable 06/28/19 04:59 Smudge Cells Not Reportable 06/28/19 04:59 Toxic Granulation Not Reportable 06/28/19 04:59 Toxic Vacuolation Not Reportable 06/28/19 04:59 Dohle Bodies Not Reportable 06/28/19 04:59 Pelger-Huet Anomaly Not Reportable 06/28/19 04:59 Zara Rods Not Reportable 06/28/19 04:59 Platelet Estimate Consistent w auto 06/28/19 04:59 Clumped Platelets Not Reportable 06/28/19 04:59 Plt Clumps, EDTA Not Reportable 06/28/19 04:59 Large Platelets 1+ 06/28/19 04:59 Giant Platelets Not Reportable 06/28/19 04:59 Platelet Satelliting Not Reportable 06/28/19 04:59 Plt Morphology Comment Not Reportable 06/28/19 04:59 RBC Morphology Not Reportable 06/28/19 04:59 Dimorphic RBCs Not Reportable 06/28/19 04:59 Polychromasia Not Reportable 06/28/19 04:59 Hypochromasia Not Reportable 06/28/19 04:59 Poikilocytosis 1+ 06/28/19 04:59 Anisocytosis 1+ 06/28/19 04:59 Microcytosis Not Reportable 06/28/19 04:59 Macrocytosis Not Reportable 06/28/19 04:59 Spherocytes Not Reportable 06/28/19 04:59 Pappenheimer Bodies Not Reportable 06/28/19 04:59 Sickle Cells Not Reportable 06/28/19 04:59 Target Cells Not Reportable 06/28/19 04:59 Tear Drop Cells Not Reportable 06/28/19 04:59 Ovalocytes Not Reportable 06/28/19 04:59 Helmet Cells Not Reportable 06/28/19 04:59 Carpenter-[place]olis Bodies Not Reportable 06/28/19 04:59 [place] Rings Not Reportable 06/28/19 04:59 Cooper Cells Not Reportable 06/28/19 04:59 Bite Cells Not Reportable 06/28/19 04:59 Crenated Cell Not Reportable 06/28/19 04:59 Elliptocytes Not Reportable 06/28/19 04:59 Acanthocytes (Spur) Not Reportable 06/28/19 04:59 Rouleaux Not Reportable 06/28/19 04:59 Hemoglobin C Crystals Not Reportable 06/28/19 04:59 Schistocytes Not Reportable 06/28/19 04:59 Malaria parasites Not Reportable 06/28/19 04:59 [place] Bodies Not Reportable 06/28/19 04:59 Hem Pathologist Commnt No 06/28/19 04:59 PT 14.4 Sec. (12.2-14.9) 06/27/19 18:41 INR 1.13 (0.87-1.13) 06/27/19 18:41 APTT 21.5 Sec. (24.2-36.6) L 06/27/19 18:41 Sodium 138 mmol/L (137-145) 06/28/19 04:59 Potassium 5.0 mmol/L (3.6-5.0) 06/28/19 04:59 Chloride 97.2 mmol/L (98-107) L 06/28/19 04:59 Carbon Dioxide 26 mmol/L (22-30) 06/28/19 04:59 Anion Gap 20 mmol/L 06/28/19 04:59 BUN 59 mg/dL (9-20) H 06/28/19 04:59 Creatinine 3.3 mg/dL (0.8-1.5) H 06/28/19 04:59 Estimated GFR 22 ml/min 06/28/19 04:59 BUN/Creatinine Ratio 18 % 06/28/19 04:59 Glucose 319 mg/dL (75-100) H 06/28/19 04:59 POC Glucose 275 (70-105) H 06/28/19 15:12 Calcium 8.5 mg/dL (8.4-10.2) 06/28/19 04:59 Urine Color Yellow (Yellow) 06/27/19 05:09 Urine Turbidity Turbid (Clear) 06/27/19 05:09 Urine pH 7.0 (5.0-7.0) 06/27/19 05:09 Ur Specific [place] 1.030 (1.003-1.030) 06/27/19 05:09 Urine Protein 100 mg/dl mg/dL (Negative) 06/27/19 05:09 Urine Glucose (UA) 150 mg/dL (Negative) 06/27/19 05:09 Urine Ketones Neg mg/dL (Negative) 06/27/19 05:09 Urine Blood Lg (Negative) 06/27/19 05:09 Urine Nitrite Neg (Negative) 06/27/19 05:09 Urine Bilirubin Neg (Negative) 06/27/19 05:09 Urine Urobilinogen 2.0 mg/dL (<2.0) 06/27/19 05:09 Ur Leukocyte Esterase Neg (Negative) 06/27/19 05:09 Urine WBC (Auto) 82.0 /HPF (0.0-6.0) H 06/27/19 05:09 Urine RBC (Auto) > 182.0 /HPF (0.0-6.0) 06/27/19 05:09 Urine Bacteria (Auto) 1+ /HPF (Negative) 06/27/19 05:09 Urine Yeast (Budding) 3+ /HPF 06/27/19 05:09 Blood Type AB POSITIVE 06/27/19 00:20 Antibody Screen Negative 06/27/19 00:20 Crossmatch See Detail 06/27/19 00:20 Active Medications - Current Medications Current Medications: Generic Name Dose Route Start Last Admin Trade Name Freq PRN Reason Stop Dose Admin Acetaminophen 650 mg 06/27/19 06:34 Tylenol PO Q4H PRN Pain MILD(1-3)/Fever >100.5/SIFUENTES Albuterol 2.5 mg 06/28/19 08:00 06/28/19 13:10 Proventil IH 2.5 mg TIDRT JONES Administration Atorvastatin Calcium 80 mg 06/28/19 22:00 Lipitor PO QHS JONES Carvedilol 25 mg 06/28/19 09:21 06/28/19 12:28 Coreg PO Not Given BID JONES Dextrose 50 ml 06/27/19 06:34 D50w (25gm) Syringe IV Q30MIN PRN Hypoglycemia Hydralazine HCl 50 mg 06/28/19 09:21 06/28/19 12:21 Apresoline PO Not Given Q8HR JONES Hydromorphone HCl 1 mg 06/27/19 10:41 06/27/19 16:20 Dilaudid IV 1 mg Q3H PRN Administration Pain , Severe (7-10) Sodium Chloride 1,000 mls @ 75 mls/hr 06/27/19 08:30 06/28/19 07:32 Nacl 0.45% 1000 Ml IV 75 mls/hr DIRECT JONES Administration Cefazolin Sodium 1 gm in 50 mls @ 100 mls/hr 06/28/19 11:00 06/28/19 12:20 Ancef/Ns 1 Gm/50 Ml IV 100 mls/hr Q12H JONES Administration Insulin Human Lispro 0 unit 06/27/19 12:00 06/28/19 12:24 Humalog SUB-Q 4 unit Q6HR JONES Administration Protocol Insulin Human Lispro 15 unit 06/28/19 10:00 06/28/19 12:27 Humalog SUB-Q 15 unit QAM JONES Administration Ondansetron HCl 4 mg 06/27/19 08:30 06/27/19 08:26 Zofran IV 4 mg Q8H PRN Administration Nausea And Vomiting Prazosin HCl 1 mg 06/28/19 22:00 Prazosin PO QHS JONES Sertraline HCl 50 mg 06/28/19 10:00 06/28/19 12:20 Zoloft PO 50 mg QDAY JONES Administration Sodium Chloride 10 ml 06/27/19 10:00 06/28/19 12:26 Sodium Chloride Flush Syringe 10 Ml IV 10 ml BID JONES Administration Sodium Chloride 10 ml 06/27/19 06:34 Sodium Chloride Flush Syringe 10 Ml IV 07/07/19 06:33 PRN PRN LINE FLUSH Sodium Chloride 2,000 ml 06/27/19 14:00 Nacl 0.9% IR DIRECT JONES Sodium Chloride 1,000 ml 06/27/19 16:40 Nacl 0.9% IR PRN PRN Wound Care Torsemide 20 mg 06/28/19 18:00 Demadex PO BID@0600,1800 JONES
[2019-06-28] MEDS ORDERED: ceFAZolin 1 GM VIAL ONE (15:43)
[2019-06-28] MEDS ORDERED: WATER FOR IRRIG STERILE 2000 ML IR ONE (16:00)
[2019-06-28] MEDS ORDERED: EPINEPHrine 1:10,000 1 MG/10 ML SYRINGE ONE ×2 (16:04→20:05)
--- NOTE | 2019-06-28 16:19 | Post Operative Note ---
Date of procedure: 06/28/19 Pre-op diagnosis: clot retention Post-op diagnosis: same Procedure: cysto, clot evac, cystogram Surgeon: MATTHEW PAREKH Estimated blood loss: other (2units clot) Condition: stable Disposition: PACU
--- NOTE | 2019-06-28 16:24 | Event Note ---
Date: 06/28/[address] Cook and he did evacuation of the blood and ordered platelets. patient was on aspirin and has platelet dysfunction. Oozing may not stop until he get platelets.
[2019-06-28] MEDS ORDERED: SODIUM CHLORIDE 0.9% 1000 ML 1,000 ML ONE ×2 (16:32→17:08)
[2019-06-28] MEDS ORDERED: INSULIN REGULAR, HUMAN 100 UNITS/1 ML IV ONE (16:50)
[2019-06-28] MEDS ORDERED: SODIUM CHLORIDE IRRI 1000 ML 1,000 ML IR ONE (16:52)
[2019-06-28] MEDS ORDERED: INSULIN REGULAR, HUMAN 100 UNITS/1 ML ONE (16:54)
--- NOTE | 2019-06-28 16:56 | Fluoroscopy Report ---
3 fluoroscopic images submitted Indication: Intraoperative localization Impression: 3 images of the abdomen were submitted for documentation purposes with radiology involve ment. Imaging provided for cystogram with reported blood clot evacuation. Please refer to the operat chavez note for complete details. 40 mL of Omnipaque 300 was utilized for this exam. Fluoroscopic time: 0.2 minutes Signer Name: Hardeep Mendes MD Signed: 06/28/2019 4:51 PM Workstation Name: [id number]
[2019-06-28 17:30] LABS: Hematocrit 24.8 % (35.5-45.6); Hemoglobin 7.8 gm/dl (11.8-15.2); Mean Corpuscular HGB Conc 32 % (32-34); Mean Corpuscular Volume 87 fl (84-94); Platelet Count 168 K/mm3 (140-440); Red Blood Count 2.83 M/mm3 (3.65-5.03); Red Cell Distribution Width 19.1 % (13.2-15.2)
--- NOTE | 2019-06-28 17:53 | Anesthesia Day of Surgery ---
Anesthesia Day of Surgery - Day of Surgery Patient Examined: Yes Patient H&P Reviewed: Yes Patient is NPO: Yes
[2019-06-28] MEDS: TORSEMIDE 10 MG TAB PO SCH (18:14)
[2019-06-28 18:58] LABS: Anisocytosis 1+; Basophils % (Manual) 0 % (0.0-1.8); Eosinophils % (Manual) 0 % (0.0-4.3); Macrocytosis Few; Monocytes % (Manual) 0 % (0.0-7.3); Platelet Estimate Consistent w Auto; Target Cells Rare; Total Cells Counted 100
--- NOTE | 2019-06-28 20:50 | Operative Report ---
PREOPERATIVE DIAGNOSIS: Clot retention. POSTOPERATIVE DIAGNOSES: Clot retention, platelet dysfunction, renal insufficiency, uncontrolled diabetes, prostate cancer, status post radiation therapy. INDICATIONS: This 79-year-old gentleman presented to the Emergency Room yesterday with clot retention. Ultimately, he was taken to the OR for clot evacuation yesterday. The patient is new to this facility. No records were available. Evacuated the clot, he was stable. Also was noted that he was on aspirin due to his heart valve. He has an artificial heart valve. Platelets were ordered; however, they were not given. On exam today, the patient was in clot retention again and had to be taken to the OR. Discussed with the patient and his . DESCRIPTION OF PROCEDURE: The patient was taken to the operative suite, placed in a supine position. After adequate general anesthesia, he was prepped and draped in a sterile fashion. The patient required pressors during the procedure. Cystoscopy was performed. Again, bladder with large amount of clot. A 24-Burmese resectoscope sheath was inserted. Large volume clot approximately 2 units was in his bladder, was sent for confirmation. This was evacuated out, vigorous clot evacuation. No active bleeding could be appreciated. No tumors, no stones, just some ____. A 24-Burmese 3-way catheter was placed, irrigated well. Cystogram, no extravasation. Marina in good position. He was taken to recovery room in guarded condition. JOB# [id number] [facility]/KIM
[2019-06-28] MEDS: PRAZOSIN 1 MG CAP PO SCH (22:59)
[2019-06-29 05:18] LABS: Hemoglobin 6.4 gm/dl (11.8-15.2); Mean Corpuscular HGB Conc 32 % (32-34); Mean Corpuscular Volume 87 fl (84-94); Platelet Count 132 K/mm3 (140-440); Red Blood Count 2.27 M/mm3 (3.65-5.03); Red Cell Distribution Width 19.3 % (13.2-15.2)
[2019-06-29 05:29] LABS: Calcium 7.7 mg/dL (8.4-10.2)
[2019-06-29 05:33] LABS: Hematocrit 19.9 % (35.5-45.6)
[2019-06-29] MEDS ORDERED: SODIUM CHLORIDE 0.9% 500 ML 500 ML IV ONE ×2 (06:17→11:37)
--- NOTE | 2019-06-29 06:19 | Event Note ---
Date: 06/29/19 hgb this am 6.4 ( trending down from 7.8) 1U PRBC ordered.
[2019-06-29] MEDS: TORSEMIDE 10 MG TAB PO SCH ×2 (06:36→18:46)
[2019-06-29] MEDS: hydrALAZINE 25 MG TAB PO SCH ×3 (06:36→22:32)
[2019-06-29] MEDS: INSULIN LISPRO 100 UNIT/ML SUB-Q SCH ×5 (06:42→18:41)
[2019-06-29] MEDS: ALBUTEROL 2.5 MG/3 ML NEBU IH SCH ×4 (07:11→20:45)
[2019-06-29 07:32] LABS: Total Cells Counted 100
[2019-06-29 07:33] LABS: Band Neutrophils # (Manual) 0.3 K/mm3; Basophils % (Manual) 0 % (0.0-1.8); Eosinophils % (Manual) 0 % (0.0-4.3); Macrocytosis Few; Monocytes % (Manual) 0 % (0.0-7.3)
[2019-06-29 07:34] LABS: Anisocytosis 1+; Poikilocytosis Few; Target Cells Rare
[2019-06-29 07:35] LABS: Platelet Estimate Consistent w Auto
--- NOTE | 2019-06-29 07:58 | Event Note ---
Date: 06/29/19 spoke with nurse Darek Menjivar this am pt resting well bermudez draining well - no clots, continue drip & manual irrigation Just starting 1 or 2 PRBCs I ordered post op yesterday 3pm ------now 8am/am Hb 6.4 Nurse states order just came through on computer (platelets started in pacu yesterday before I left bedside)
[2019-06-29] MEDS: CARVEDILOL 25 MG TAB PO SCH ×2 (10:36→22:32)
[2019-06-29] MEDS: ceFAZolin/NS 1 GM/50 ML 1 GM/50 ML BAG IV SCH ×2 (10:36→22:29)
[2019-06-29] MEDS: SERTRALINE 50 MG TAB PO SCH (10:37)
[2019-06-29] MEDS ORDERED: SODIUM CHLORIDE 0.9% 1000 ML 1,000 ML IV SCH (11:00)
--- NOTE | 2019-06-29 11:27 | Progress Note ---
Assessment and Plan Assessment and plan: 79-year-old -[place] male with past medical history significant for prostate cancer status post radiation treatment presented to the emergency department complaining of hematuria. Hematuria -s/p cystoscopy -mgx by urology Acute blood loss anemia -s/p evacuation by urology -status post blood transfusion with 2U of PRBCS -will monitor H/H UTI -on IV cefazolin -wbc level trending down, will monitor -urine culture neg so far CHARO -Probably secondary to obstructive uropathy -CT abdomen/pelvis showed bilateral hydro-ureteronephrosis -Nephrology consulted Metabolic acidosis -Likely secondary to the CHARO -Will monitor level Acute Respiratory distress post surgery -We will wean patient off BiPAP DM2 with hyperglycemia -Continue SSI and Lantus H/o platelet dysfunction -Platelet level >132k, will monitor -1 unit of platelet ordered Hyponatremia -on IVF, will monitor level Hypertension -Controlled CAD -stable H/o COPD/asthma -no acute exacerbation -cont neb tx H/o prostate cancer -for out-pt f/u DVT ppx: SCD Disp: d/c per clinical course History Interval history: Pt has no new complaint. He denies chest pain or SOB. Hospitalist Physical - Constitutional Vitals: Temp Pulse Resp BP Pulse Ox 98.5 F 71 22 121/56 100 06/29/19 09:20 06/29/19 10:36 06/29/19 09:20 06/29/19 10:36 06/29/19 09:20 General appearance: Present: no acute distress, obese - EENT Eyes: Present: PERRL, EOM intact ENT: hearing intact, clear oral mucosa - Neck Neck: Present: supple - Respiratory Respiratory effort: normal Respiratory: bilateral: rhonchi - Cardiovascular Rhythm: regular Heart Sounds: Present: S1 & S2 - Extremities Extremities: No edema - Abdominal General gastrointestinal: soft, non-tender, normal bowel sounds - Integumentary Integumentary: Present: clear, warm - Psychiatric Psychiatric: appropriate mood/affect - Neurologic Neurologic: CNII-XII intact Results - Labs CBC & Chem 7: 06/29/19 04:37 06/29/19 04:37 Labs: Laboratory Last Values WBC 25.9 K/mm3 (4.5-11.0) H 06/29/19 04:37 RBC 2.27 M/mm3 (3.65-5.03) L 06/29/19 04:37 Hgb 6.4 gm/dl (11.8-15.2) L 06/29/19 04:37 Hct 19.9 % (35.5-45.6) L* 06/29/19 04:37 MCV 87 fl (84-94) 06/29/19 04:37 MCH 28 pg (28-32) 06/29/19 04:37 MCHC 32 % (32-34) 06/29/19 04:37 RDW 19.3 % (13.2-15.2) H 06/29/19 04:37 Plt Count 132 K/mm3 (140-440) L 06/29/19 04:37 Lymph % (Auto) 3.8 % (13.4-35.0) L 06/27/19 Unknown [place] % (Auto) 5.6 % (0.0-7.3) 06/27/19 Unknown Eos % (Auto) 0.0 % (0.0-4.3) 06/27/19 Unknown Baso % (Auto) 0.6 % (0.0-1.8) 06/27/19 Unknown Lymph # 0.6 K/mm3 (1.2-5.4) L 06/27/19 Unknown [place] # 0.9 K/mm3 (0.0-0.8) H 06/27/19 Unknown Eos # 0.0 K/mm3 (0.0-0.4) 06/27/19 Unknown Baso # 0.1 K/mm3 (0.0-0.1) 06/27/19 Unknown Add Manual Diff Complete 06/29/19 04:37 Total Counted 100 06/29/19 04:37 Seg Neutrophils % [employer] 06/29/19 04:37 Seg Neuts % (Manual) 93.0 % (40.0-70.0) H 06/29/19 04:37 Band Neutrophils % 1.0 % 06/29/19 04:37 Lymphocytes % (Manual) 6.0 % (13.4-35.0) L 06/29/19 04:37 Reactive Lymphs % (Man) 0 % 06/29/19 04:37 Monocytes % (Manual) 0 % (0.0-7.3) 06/29/19 04:37 Eosinophils % (Manual) 0 % (0.0-4.3) 06/29/19 04:37 Basophils % (Manual) 0 % (0.0-1.8) 06/29/19 04:37 Metamyelocytes % 0 % 06/29/19 04:37 Myelocytes % 0 % 06/29/19 04:37 Promyelocytes % 0 % 06/29/19 04:37 Blast Cells % 0 % 06/29/19 04:37 Nucleated RBC % 1.0 % (0.0-0.9) H 06/29/19 04:37 Seg Neutrophils # 15.1 K/mm3 (1.8-7.7) H 06/27/19 Unknown Seg Neutrophils # Man 24.1 K/mm3 (1.8-7.7) H 06/29/19 04:37 Band Neutrophils # 0.3 K/mm3 06/29/19 04:37 Lymphocytes # (Manual) 1.6 K/mm3 (1.2-5.4) 06/29/19 04:37 Abs React Lymphs (Man) 0.0 K/mm3 06/29/19 04:37 Monocytes # (Manual) 0.0 K/mm3 (0.0-0.8) 06/29/19 04:37 Eosinophils # (Manual) 0.0 K/mm3 (0.0-0.4) 06/29/19 04:37 Basophils # (Manual) 0.0 K/mm3 (0.0-0.1) 06/29/19 04:37 Metamyelocytes # 0.0 K/mm3 06/29/19 04:37 Myelocytes # 0.0 K/mm3 06/29/19 04:37 Promyelocytes # 0.0 K/mm3 06/29/19 04:37 Blast Cells # 0.0 K/mm3 06/29/19 04:37 WBC Morphology Not Reportable 06/29/19 04:37 Hypersegmented Neuts Not Reportable 06/29/19 04:37 Hyposegmented Neuts Not Reportable 06/29/19 04:37 Hypogranular Neuts Not Reportable 06/29/19 04:37 Smudge Cells Not Reportable 06/29/19 04:37 Toxic Granulation Not Reportable 06/29/19 04:37 Toxic Vacuolation Not Reportable 06/29/19 04:37 Dohle Bodies Not Reportable 06/29/19 04:37 Pelger-Huet Anomaly Not Reportable 06/29/19 04:37 Zara Rods Not Reportable 06/29/19 04:37 Platelet Estimate Consistent w auto 06/29/19 04:37 Clumped Platelets Not Reportable 06/29/19 04:37 Plt Clumps, EDTA Not Reportable 06/29/19 04:37 Large Platelets Not Reportable 06/29/19 04:37 Giant Platelets Not Reportable 06/29/19 04:37 Platelet Satelliting Not Reportable 06/29/19 04:37 Plt Morphology Comment Not Reportable 06/29/19 04:37 RBC Morphology Not Reportable 06/29/19 04:37 Dimorphic RBCs Not Reportable 06/29/19 04:37 Polychromasia Not Reportable 06/29/19 04:37 Hypochromasia Not Reportable 06/29/19 04:37 Poikilocytosis Few 06/29/19 04:37 Anisocytosis 1+ 06/29/19 04:37 Microcytosis Not Reportable 06/29/19 04:37 Macrocytosis Few 06/29/19 04:37 Spherocytes Not Reportable 06/29/19 04:37 Pappenheimer Bodies Not Reportable 06/29/19 04:37 Sickle Cells Not Reportable 06/29/19 04:37 Target Cells Rare 06/29/19 04:37 Tear Drop Cells Not Reportable 06/29/19 04:37 Ovalocytes Not Reportable 06/29/19 04:37 Helmet Cells Not Reportable 06/29/19 04:37 [place] Bodies Not Reportable 06/29/19 04:37 [place] Rings Not Reportable 06/29/19 04:37 [place] Cells Not Reportable 06/29/19 04:37 Bite Cells Not Reportable 06/29/19 04:37 Crenated Cell Not Reportable 06/29/19 04:37 Elliptocytes Few 06/29/19 04:37 Acanthocytes (Spur) Not Reportable 06/29/19 04:37 Rouleaux Not Reportable 06/29/19 04:37 Hemoglobin C Crystals Not Reportable 06/29/19 04:37 Schistocytes Not Reportable 06/29/19 04:37 Malaria parasites Not Reportable 06/29/19 04:37 [place] Bodies Not Reportable 06/29/19 04:37 Hem Pathologist Commnt No 06/29/19 04:37 PT 14.4 Sec. (12.2-14.9) 06/27/19 18:41 INR 1.13 (0.87-1.13) 06/27/19 18:41 APTT 21.5 Sec. (24.2-36.6) L 06/27/19 18:41 Sodium 133 mmol/L (137-145) L 06/29/19 04:37 Potassium 4.4 mmol/L (3.6-5.0) 06/29/19 04:37 Chloride 100.0 mmol/L (98-107) 06/29/19 04:37 Carbon Dioxide 20 mmol/L (22-30) L 06/29/19 04:37 Anion Gap 17 mmol/L 06/29/19 04:37 BUN 67 mg/dL (9-20) H 06/29/19 04:37 Creatinine 3.9 mg/dL (0.8-1.5) H 06/29/19 04:37 Estimated GFR 18 ml/min 06/29/19 04:37 BUN/Creatinine Ratio 17 % 06/29/19 04:37 Glucose 204 mg/dL (75-100) H 06/29/19 04:37 POC Glucose 239 (70-105) H 06/29/19 05:50 Calcium 7.7 mg/dL (8.4-10.2) L 06/29/19 04:37 Phosphorus 5.10 mg/dL (2.5-4.5) H 06/29/19 04:37 Magnesium 2.20 mg/dL (1.7-2.3) 06/29/19 04:37 PTH Intact 177.9 pg/mL (15-65) H 06/29/19 04:37 Urine Color Yellow (Yellow) 06/27/19 05:09 Urine Turbidity Turbid (Clear) 06/27/19 05:09 Urine pH 7.0 (5.0-7.0) 06/27/19 05:09 Ur Specific [place] 1.030 (1.003-1.030) 06/27/19 05:09 Urine Protein 100 mg/dl mg/dL (Negative) 06/27/19 05:09 Urine Glucose (UA) 150 mg/dL (Negative) 06/27/19 05:09 Urine Ketones Neg mg/dL (Negative) 06/27/19 05:09 Urine Blood Lg (Negative) 06/27/19 05:09 Urine Nitrite Neg (Negative) 06/27/19 05:09 Urine Bilirubin Neg (Negative) 06/27/19 05:09 Urine Urobilinogen 2.0 mg/dL (<2.0) 06/27/19 05:09 Ur Leukocyte Esterase Neg (Negative) 06/27/19 05:09 Urine WBC (Auto) 82.0 /HPF (0.0-6.0) H 06/27/19 05:09 Urine RBC (Auto) > 182.0 /HPF (0.0-6.0) 06/27/19 05:09 Urine Bacteria (Auto) 1+ /HPF (Negative) 06/27/19 05:09 Urine Yeast (Budding) 3+ /HPF 06/27/19 05:09 Blood Type AB POSITIVE 06/27/19 00:20 Antibody Screen Negative 06/27/19 00:20 Crossmatch See Detail 06/27/19 00:20 Active Medications - Current Medications Current Medications: Generic Name Dose Route Start Last Admin Trade Name Freq PRN Reason Stop Dose Admin Acetaminophen 650 mg 06/27/19 06:34 Tylenol PO Q4H PRN Pain MILD(1-3)/Fever >100.5/SIFUENTES Albuterol 2.5 mg 06/28/19 08:00 06/29/19 07:25 Proventil IH Not Given TIDRT [facility] Atorvastatin Calcium 80 mg 06/28/19 22:00 06/28/19 22:59 Lipitor PO 80 mg QHS JONES Administration Carvedilol 12.5 mg 06/29/19 07:57 06/29/19 10:36 Coreg PO 12.5 mg BID JONES Administration Dextrose 50 ml 06/27/19 06:34 D50w (25gm) Syringe IV Q30MIN PRN Hypoglycemia Hydralazine HCl 50 mg 06/28/19 09:21 06/29/19 06:36 Apresoline PO 50 mg Q8HR JONES Administration Hydromorphone HCl 1 mg 06/27/19 10:41 06/27/19 16:20 Dilaudid IV 1 mg Q3H PRN Administration Pain , Severe (7-10) Cefazolin Sodium 1 gm in 50 mls @ 100 mls/hr 06/28/19 11:00 06/29/19 10:36 Ancef/Ns 1 Gm/50 Ml IV 100 mls/hr Q12H JONES Administration Sodium Chloride 1,000 mls @ 75 mls/hr 06/29/19 11:00 Nacl 0.9% 1000 Ml IV DIRECT JONES Insulin Glargine 20 units 06/28/19 22:00 Lantus SUB-Q QHS JONES Insulin Human Lispro 0 unit 06/27/19 12:00 06/29/19 06:42 Humalog SUB-Q 2 unit Q6HR JONES Administration Protocol Insulin Human Lispro 15 unit 06/28/19 10:00 06/29/19 10:37 Humalog SUB-Q 15 unit QAM JONES Administration Ondansetron HCl 4 mg 06/27/19 08:30 06/27/19 08:26 Zofran IV 4 mg Q8H PRN Administration Nausea And Vomiting Prazosin HCl 1 mg 06/28/19 22:00 06/28/19 22:59 Prazosin PO 1 mg QHS JONES Administration Sertraline HCl 50 mg 06/28/19 10:00 06/29/19 10:37 Zoloft PO 50 mg QDAY JONES Administration Sodium Chloride 10 ml 06/27/19 10:00 06/28/19 12:26 Sodium Chloride Flush Syringe 10 Ml IV 10 ml BID JONES Administration Sodium Chloride 10 ml 06/27/19 06:34 Sodium Chloride Flush Syringe 10 Ml IV 07/07/19 06:33 PRN PRN LINE FLUSH Sodium Chloride 2,000 ml 06/27/19 14:00 Nacl 0.9% IR DIRECT JONES Sodium Chloride 1,000 ml 06/27/19 16:40 Nacl 0.9% IR PRN PRN Wound Care Torsemide 20 mg 06/28/19 18:00 06/29/19 06:36 Demadex PO 20 mg BID@0600,1800 JONES Administration
--- NOTE | 2019-06-29 11:37 | Progress Note ---
Subjective Date of service: 06/29/19 Interval history: Pt resting well irrigated clots pink tinged 20cc in 30cc balloon Hb 6 this am----has received 1unit PRBCs after this reading pt needs a 2nd unit A/P prostate ca s/p radiation diabetes heart valve (on ASA) stop ASA 6 pack platelets -given yesterday in pacu continue cross drip manual irrigation q 2hours & prn give 2nd unit PRBC & check CBC discussed with nurse Objective - Constitutional Vitals: Vital Signs - 12hr 06/28/19 06/28/19 06/28/19 23:40 23:49 23:50 Temperature 98.7 F Pulse Rate 77 74 Pulse Rate [ From Monitor] Respiratory 13 14 Rate Blood Pressure 107/49 107/49 O2 Sat by Pulse 100 99 Oximetry 06/29/19 06/29/19 06/29/19 00:00 00:10 00:20 Temperature Pulse Rate 70 70 66 Pulse Rate [ 68 From Monitor] Respiratory 12 13 13 Rate Blood Pressure 103/49 103/49 103/49 O2 Sat by Pulse 99 98 96 Oximetry 06/29/19 06/29/19 06/29/19 00:30 00:37 00:40 Temperature Pulse Rate 66 67 Pulse Rate [ From Monitor] Respiratory 19 15 Rate Blood Pressure 112/48 112/48 O2 Sat by Pulse 96 98 97 Oximetry 06/29/19 06/29/19 06/29/19 00:50 01:00 01:10 Temperature Pulse Rate 68 68 70 Pulse Rate [ From Monitor] Respiratory 11 L 13 16 Rate Blood Pressure 112/48 102/45 102/45 O2 Sat by Pulse 94 93 95 Oximetry 06/29/19 06/29/19 06/29/19 01:20 01:30 01:40 Temperature Pulse Rate 69 70 69 Pulse Rate [ From Monitor] Respiratory 22 22 14 Rate Blood Pressure 102/45 112/51 112/51 O2 Sat by Pulse 97 96 96 Oximetry 06/29/19 06/29/19 06/29/19 01:50 02:00 02:10 Temperature Pulse Rate 70 75 75 Pulse Rate [ From Monitor] Respiratory 10 L 16 24 Rate Blood Pressure 112/51 106/47 106/47 O2 Sat by Pulse 97 97 96 Oximetry 06/29/19 06/29/19 06/29/19 02:20 02:30 02:40 Temperature Pulse Rate 74 76 70 Pulse Rate [ From Monitor] Respiratory 19 25 H 16 Rate Blood Pressure 106/47 114/46 114/46 O2 Sat by Pulse 94 96 96 Oximetry 06/29/19 06/29/19 06/29/19 02:50 03:00 03:10 Temperature Pulse Rate 74 73 73 Pulse Rate [ From Monitor] Respiratory 24 20 19 Rate Blood Pressure 114/46 123/46 123/46 O2 Sat by Pulse 97 99 99 Oximetry 06/29/19 06/29/19 06/29/19 03:20 03:30 03:40 Temperature Pulse Rate 73 74 75 Pulse Rate [ From Monitor] Respiratory 32 H 19 15 Rate Blood Pressure 123/46 110/50 110/50 O2 Sat by Pulse 98 96 94 Oximetry 06/29/19 06/29/19 06/29/19 03:48 03:50 04:00 Temperature 97.4 F L Pulse Rate 78 72 Pulse Rate [ 72 From Monitor] Respiratory 20 23 Rate Blood Pressure 110/50 114/52 O2 Sat by Pulse 93 96 Oximetry 06/29/19 06/29/19 06/29/19 04:10 04:20 04:30 Temperature Pulse Rate 77 76 77 Pulse Rate [ From Monitor] Respiratory 20 23 17 Rate Blood Pressure 114/52 114/52 117/50 O2 Sat by Pulse 90 92 97 Oximetry 06/29/19 06/29/19 06/29/19 04:40 04:50 05:00 Temperature Pulse Rate 79 76 72 Pulse Rate [ From Monitor] Respiratory 17 18 17 Rate Blood Pressure 117/50 117/50 118/51 O2 Sat by Pulse 94 98 99 Oximetry 06/29/19 06/29/19 06/29/19 05:10 05:20 05:24 Temperature Pulse Rate 76 75 76 Pulse Rate [ From Monitor] Respiratory 11 L 10 L 32 H Rate Blood Pressure 118/51 118/51 118/51 O2 Sat by Pulse 100 99 99 Oximetry 06/29/19 06/29/19 06/29/19 05:30 05:40 05:50 Temperature Pulse Rate 73 81 79 Pulse Rate [ From Monitor] Respiratory 31 H 25 H 22 Rate Blood Pressure 104/48 104/48 104/48 O2 Sat by Pulse 99 100 100 Oximetry 06/29/19 06/29/19 06/29/19 06:00 06:10 06:20 Temperature Pulse Rate 77 79 72 Pulse Rate [ From Monitor] Respiratory 24 26 H 20 Rate Blood Pressure 105/48 105/48 105/48 O2 Sat by Pulse 100 99 99 Oximetry 06/29/19 06/29/19 06/29/19 06:30 06:36 06:40 Temperature Pulse Rate 67 74 74 Pulse Rate [ From Monitor] Respiratory 23 28 H Rate Blood Pressure 102/51 102/51 102/51 O2 Sat by Pulse 97 97 Oximetry 06/29/19 06/29/19 06/29/19 06:50 07:00 07:10 Temperature Pulse Rate 75 75 74 Pulse Rate [ From Monitor] Respiratory 22 21 21 Rate Blood Pressure 102/51 103/51 103/51 O2 Sat by Pulse 96 96 98 Oximetry 06/29/19 06/29/19 06/29/19 07:11 07:20 07:26 Temperature 97.8 F Pulse Rate 80 72 76 Pulse Rate [ From Monitor] Respiratory 25 H 27 H 28 H Rate Blood Pressure 103/51 103/51 103/51 O2 Sat by Pulse 99 97 97 Oximetry 06/29/19 06/29/19 06/29/19 07:30 07:40 07:41 Temperature 97.5 F L Pulse Rate 73 76 77 Pulse Rate [ From Monitor] Respiratory 29 H 39 H 26 H Rate Blood Pressure 107/50 107/50 107/50 O2 Sat by Pulse 97 95 95 Oximetry 06/29/19 06/29/19 06/29/19 07:50 08:00 08:10 Temperature 97.8 F Pulse Rate 80 72 Pulse Rate [ 80 From Monitor] Respiratory 15 17 15 Rate Blood Pressure 107/50 99/54 99/54 O2 Sat by Pulse 99 99 98 Oximetry 06/29/19 06/29/19 06/29/19 08:11 08:20 08:30 Temperature 98.4 F Pulse Rate 77 79 73 Pulse Rate [ From Monitor] Respiratory 12 14 17 Rate Blood Pressure 99/54 99/54 107/50 O2 Sat by Pulse 97 97 98 Oximetry 06/29/19 06/29/19 06/29/19 08:40 08:41 08:50 Temperature 98.3 F Pulse Rate 73 73 76 Pulse Rate [ From Monitor] Respiratory 12 21 13 Rate Blood Pressure 130/50 130/50 130/50 O2 Sat by Pulse 98 93 94 Oximetry 06/29/19 06/29/19 06/29/19 09:00 09:11 09:20 Temperature 98.3 F 98.5 F Pulse Rate 75 75 73 Pulse Rate [ From Monitor] Respiratory 15 16 22 Rate Blood Pressure 129/54 129/54 132/61 O2 Sat by Pulse 97 99 100 Oximetry 06/29/19 10:36 Temperature Pulse Rate 71 Pulse Rate [ From Monitor] Respiratory Rate Blood Pressure 121/56 O2 Sat by Pulse Oximetry - Labs CBC & Chem 7: 06/29/19 04:37 06/29/19 04:37 Labs: Abnormal lab results 06/27/19 06/28/19 06/28/19 Range/Units 00:20 12:22 15:12 WBC (4.5-11.0) K/mm3 RBC (3.65-5.03) M/mm3 Hgb (11.8-15.2) gm/dl Hct (35.5-45.6) % RDW (13.2-15.2) % Plt Count (140-440) K/mm3 Seg Neuts % (Manual) (40.0-70.0) % Lymphocytes % (Manual) (13.4-35.0) % Nucleated RBC % (0.0-0.9) % Seg Neutrophils # Man (1.8-7.7) K/mm3 Lymphocytes # (Manual) (1.2-5.4) K/mm3 Sodium (137-145) mmol/L Carbon Dioxide (22-30) mmol/L BUN (9-20) mg/dL Creatinine (0.8-1.5) mg/dL Glucose (75-100) mg/dL POC Glucose 333 H 275 H (70-105) Calcium (8.4-10.2) mg/dL Phosphorus (2.5-4.5) mg/dL PTH Intact (15-65) pg/mL Crossmatch See Detail 06/28/19 06/28/19 06/28/19 Range/Units 17:12 17:12 18:14 WBC 33.7 H (4.5-11.0) K/mm3 RBC 2.83 L (3.65-5.03) M/mm3 Hgb 7.8 L (11.8-15.2) gm/dl Hct 24.8 L (35.5-45.6) % RDW 19.1 H (13.2-15.2) % Plt Count (140-440) K/mm3 Seg Neuts % (Manual) 88.0 H (40.0-70.0) % Lymphocytes % (Manual) 3.0 L (13.4-35.0) % Nucleated RBC % (0.0-0.9) % Seg Neutrophils # Man 29.7 H (1.8-7.7) K/mm3 Lymphocytes # (Manual) 1.0 L (1.2-5.4) K/mm3 Sodium 135 L (137-145) mmol/L Carbon Dioxide (22-30) mmol/L BUN 60 H (9-20) mg/dL Creatinine 3.9 H (0.8-1.5) mg/dL Glucose 218 H (75-100) mg/dL POC Glucose 128 H (70-105) Calcium 8.0 L (8.4-10.2) mg/dL Phosphorus (2.5-4.5) mg/dL PTH Intact (15-65) pg/mL Crossmatch 06/29/19 06/29/19 06/29/19 Range/Units 00:34 04:37 04:37 WBC 25.9 H (4.5-11.0) K/mm3 RBC 2.27 L (3.65-5.03) M/mm3 Hgb 6.4 L (11.8-15.2) gm/dl Hct 19.9 L* (35.5-45.6) % RDW 19.3 H (13.2-15.2) % Plt Count 132 L (140-440) K/mm3 Seg Neuts % (Manual) 93.0 H (40.0-70.0) % Lymphocytes % (Manual) 6.0 L (13.4-35.0) % Nucleated RBC % 1.0 H (0.0-0.9) % Seg Neutrophils # Man 24.1 H (1.8-7.7) K/mm3 Lymphocytes # (Manual) (1.2-5.4) K/mm3 Sodium 133 L (137-145) mmol/L Carbon Dioxide 20 L (22-30) mmol/L BUN 67 H (9-20) mg/dL Creatinine 3.9 H (0.8-1.5) mg/dL Glucose 204 H (75-100) mg/dL POC Glucose 203 H (70-105) Calcium 7.7 L (8.4-10.2) mg/dL Phosphorus 5.10 H (2.5-4.5) mg/dL PTH Intact (15-65) pg/mL Crossmatch 06/29/19 06/29/19 Range/Units 04:37 05:50 WBC (4.5-11.0) K/mm3 RBC (3.65-5.03) M/mm3 Hgb (11.8-15.2) gm/dl Hct (35.5-45.6) % RDW (13.2-15.2) % Plt Count (140-440) K/mm3 Seg Neuts % (Manual) (40.0-70.0) % Lymphocytes % (Manual) (13.4-35.0) % Nucleated RBC % (0.0-0.9) % Seg Neutrophils # Man (1.8-7.7) K/mm3 Lymphocytes # (Manual) (1.2-5.4) K/mm3 Sodium (137-145) mmol/L Carbon Dioxide (22-30) mmol/L BUN (9-20) mg/dL Creatinine (0.8-1.5) mg/dL Glucose (75-100) mg/dL POC Glucose 239 H (70-105) Calcium (8.4-10.2) mg/dL Phosphorus (2.5-4.5) mg/dL PTH Intact 177.9 H (15-65) pg/mL Crossmatch Medications & Allergies - Medications Allergies/Adverse Reactions: Allergies No Known Allergies Allergy (Verified 06/27/19 03:52) Home Medications: Home Medications Medication Instructions Recorded Confirmed Last Taken Type Aspirin [Aspirin BABY CHEW TAB] 1 tab PO DAILY 06/27/19 06/27/19 Unknown History Atorvastatin Calcium [Lipitor] 1 tab PO DAILY 06/27/19 06/27/19 Unknown History Carvedilol [Coreg] 25 mg PO BID 06/27/19 06/27/19 Unknown History Insulin Aspart [Novolog Flexpen] 15 unit SQ DAILY 06/27/19 06/27/19 Unknown History Sertraline [Zoloft] 50 mg PO QDAY 06/27/19 06/27/19 Unknown History Terazosin HCl 1 tab PO QHS 06/27/19 06/27/19 Unknown History Torsemide [Demadex] 1 tab PO BID 06/27/19 06/27/19 Unknown History hydrALAZINE [Apresoline] 2 tab PO Q8HR 06/27/19 06/27/19 Unknown History Active Medications: Generic Name Dose Route Start Last Admin Trade Name Freq PRN Reason Stop Dose Admin Acetaminophen 650 mg 06/27/19 06:34 Tylenol PO Q4H PRN Pain MILD(1-3)/Fever >100.5/SIFUENTES Albuterol 2.5 mg 06/28/19 08:00 06/29/19 07:25 Proventil IH Not Given TIDRT JONES Atorvastatin Calcium 80 mg 06/28/19 22:00 06/28/19 22:59 Lipitor PO 80 mg QHS JONES Administration Carvedilol 12.5 mg 06/29/19 07:57 06/29/19 10:36 Coreg PO 12.5 mg BID JONES Administration Dextrose 50 ml 06/27/19 06:34 D50w (25gm) Syringe IV Q30MIN PRN Hypoglycemia Hydralazine HCl 50 mg 06/28/19 09:21 06/29/19 06:36 Apresoline PO 50 mg Q8HR JONES Administration Hydromorphone HCl 1 mg 06/27/19 10:41 06/27/19 16:20 Dilaudid IV 1 mg Q3H PRN Administration Pain , Severe (7-10) Cefazolin Sodium 1 gm in 50 mls @ 100 mls/hr 06/28/19 11:00 06/29/19 10:36 Ancef/Ns 1 Gm/50 Ml IV 100 mls/hr Q12H JONES Administration Sodium Chloride 1,000 mls @ 75 mls/hr 06/29/19 11:00 Nacl 0.9% 1000 Ml IV DIRECT [facility] Insulin Glargine 20 units 06/28/19 22:00 Lantus SUB-Q QHS [facility] Insulin Human Lispro 0 unit 06/27/19 12:00 06/29/19 06:42 Humalog SUB-Q 2 unit Q6HR JONES Administration Protocol Insulin Human Lispro 15 unit 06/28/19 10:00 06/29/19 10:37 Humalog SUB-Q 15 unit QAM JONES Administration Ondansetron HCl 4 mg 06/27/19 08:30 06/27/19 08:26 Zofran IV 4 mg Q8H PRN Administration Nausea And Vomiting Prazosin HCl 1 mg 06/28/19 22:00 06/28/19 22:59 Prazosin PO 1 mg QHS JONES Administration Sertraline HCl 50 mg 06/28/19 10:00 06/29/19 10:37 Zoloft PO 50 mg QDAY JONES Administration Sodium Chloride 10 ml 06/27/19 10:00 06/28/19 12:26 Sodium Chloride Flush Syringe 10 Ml IV 10 ml BID JONES Administration Sodium Chloride 10 ml 06/27/19 06:34 Sodium Chloride Flush Syringe 10 Ml IV 07/07/19 06:33 PRN PRN LINE FLUSH Sodium Chloride 2,000 ml 06/27/19 14:00 Nacl 0.9% IR DIRECT JONES Sodium Chloride 1,000 ml 06/27/19 16:40 Nacl 0.9% IR PRN PRN Wound Care Torsemide 20 mg 06/28/19 18:00 06/29/19 06:36 Demadex PO 20 mg BID@0600,1800 JONES Administration
--- NOTE | 2019-06-29 11:50 | Consultation ---
History of Present Illness - Reason for Consult Consult date: 06/29/19 acute renal failure, chronic renal failure - History of Present Illness The patient is a 79 YO male with significant for Obesity, Hypertension, DM type 2, CAD, COPD, Prostate cancer, s/p Aortic valve replacement and CHF who presented to [facility] ED on 06/27/19 with complaints of blood in the urine and difficulty in urinating. He also reports nausea and lower abdominal pain. Patient denies any fever, chills, dysuria, diarrhea, cp, sob, worsening leg swelling, dizziness, rash or syncope. Patient was admitted to the [facility] last week for lower extremity edema. CT abdomen showed Large amount of acute appearing hemorrhage and clot distending the urinary bladder lumen and causing at least mild obstruction of both ureters causing moderate bilateral hydroureteronephrosis. Yesterday patient underwent cysto, clot evac and cystogram. Currently he is on [place] drip. Creatinine level was 2.3 on admission, increased to 3.9 today. Hb dropped to 6.4 today. Nephrology was consulted for further evaluation. Past History Past Medical History: COPD, diabetes, heart failure, hypertension, hyperlipidemia, other (Aortic valve replacement) Medications and Allergies Allergies Allergy/AdvReac Type Severity Reaction Status Date / Time No Known Allergies Allergy Verified 06/27/19 03:52 Home Medications Medication Instructions Recorded Confirmed Last Taken Type Aspirin [Aspirin BABY CHEW TAB] 1 tab PO DAILY 06/27/19 06/27/19 Unknown History Atorvastatin Calcium [Lipitor] 1 tab PO DAILY 06/27/19 06/27/19 Unknown History Carvedilol [Coreg] 25 mg PO BID 06/27/19 06/27/19 Unknown History Insulin Aspart [Novolog Flexpen] 15 unit SQ DAILY 06/27/19 06/27/19 Unknown History Sertraline [Zoloft] 50 mg PO QDAY 06/27/19 06/27/19 Unknown History Terazosin HCl 1 tab PO QHS 06/27/19 06/27/19 Unknown History Torsemide [Demadex] 1 tab PO BID 06/27/19 06/27/19 Unknown History hydrALAZINE [Apresoline] 2 tab PO Q8HR 06/27/19 06/27/19 Unknown History Active Meds: Active Medications Acetaminophen (Tylenol) 650 mg PO Q4H PRN PRN Reason: Pain MILD(1-3)/Fever >100.5/SIFUENTES Albuterol (Proventil) 2.5 mg IH TIDRT [facility] Last Admin: 06/29/19 07:25 Dose: Not Given Documented by: Atorvastatin Calcium (Lipitor) 80 mg PO QHS [facility] Last Admin: 06/28/19 22:59 Dose: 80 mg Documented by: Carvedilol (Coreg) 12.5 mg PO BID [facility] Last Admin: 06/29/19 10:36 Dose: 12.5 mg Documented by: Dextrose (D50w (25gm) Syringe) 50 ml IV Q30MIN PRN PRN Reason: Hypoglycemia Hydralazine HCl (Apresoline) 50 mg PO Q8HR [facility] Last Admin: 06/29/19 06:36 Dose: 50 mg Documented by: Hydromorphone HCl (Dilaudid) 1 mg IV Q3H PRN PRN Reason: Pain , Severe (7-10) Last Admin: 06/27/19 16:20 Dose: 1 mg Documented by: Cefazolin Sodium (Ancef/Ns 1 Gm/50 Ml) 1 gm in 50 mls @ 100 mls/hr IV Q12H [facility] Last Admin: 06/29/19 10:36 Dose: 100 mls/hr Documented by: Sodium Chloride (Nacl 0.9% 1000 Ml) 1,000 mls @ 75 mls/hr IV DIRECT [facility] Insulin Glargine (Lantus) 20 units SUB-Q QHS [facility] Insulin Human Lispro (Humalog) 0 unit SUB-Q Q6HR [facility]; Protocol Last Admin: 06/29/19 06:42 Dose: 2 unit Documented by: Insulin Human Lispro (Humalog) 15 unit SUB-Q QAM [facility] Last Admin: 06/29/19 10:37 Dose: 15 unit Documented by: Ondansetron HCl (Zofran) 4 mg IV Q8H PRN PRN Reason: Nausea And Vomiting Last Admin: 06/27/19 08:26 Dose: 4 mg Documented by: Prazosin HCl (Prazosin) 1 mg PO QHS [facility] Last Admin: 06/28/19 22:59 Dose: 1 mg Documented by: Sertraline HCl (Zoloft) 50 mg PO QDAY [facility] Last Admin: 06/29/19 10:37 Dose: 50 mg Documented by: Sodium Chloride (Sodium Chloride Flush Syringe 10 Ml) 10 ml IV BID [facility] Last Admin: 06/28/19 12:26 Dose: 10 ml Documented by: Sodium Chloride (Sodium Chloride Flush Syringe 10 Ml) 10 ml IV PRN PRN PRN Reason: LINE FLUSH Stop: 07/07/19 06:33 Sodium Chloride (Nacl 0.9%) 2,000 ml IR DIRECT [facility] Sodium Chloride (Nacl 0.9%) 1,000 ml IR PRN PRN PRN Reason: Wound Care Torsemide (Demadex) 20 mg PO BID@0600,1800 [facility] Last Admin: 06/29/19 06:36 Dose: 20 mg Documented by: Review of Systems Constitutional: no weight loss, no weight gain, no fever, no chills, no anorex ia, no weakness, no poor appetite Cardiovascular: edema, high blood pressure, leg edema, no chest pain, no orthopnea, no syncope, no lightheadedness, no shortness of breath Respiratory: cough, dyspnea on exertion Gastrointestinal: abdominal pain, nausea, no vomiting, no diarrhea, no melena Genitourinary Male: hematuria, urinary retention, no dysuria Rectal: no bleeding Musculoskeletal: no morning stiffness, no muscle weakness Integumentary: no rash, no wounds, no jaundice Neurological: no head injury, no paralysis, no weakness, no aphasia, no change in speech, no change in mentation, no confusion Exam - Vital Signs Vital signs: Vital Signs Temp Pulse Resp BP Pulse Ox 98.3 F 93 H 22 134/55 97 06/27/19 01:27 06/27/19 01:27 06/27/19 01:27 06/27/19 01:27 06/27/19 01:27 - General Appearance General appearance: well-developed, well-nourished, appears stated age, obese, other (not in distress) EENT: ATNC, PERRL, hearing intact, vision intact Neck: Present: neck supple, trachea midline Respiratory: Other (breath sounds appears coarse) Heart: regular, S1S2, no murmurs Gastrointestinal: Present: normoactive bowel sounds, obese, other (Marina catheter with bloody urine). Absent: tenderness, distended Integumentary: no rash, warm and dry Neurologic: no focal deficit, no asterixis, alert and oriented x3 Musculoskeletal: Present: other (Trace LE edema) Psychiatric: cooperative Results - Lab Results 06/29/19 04:37 06/29/19 04:37 Most recent lab results Calcium 7.7 mg/dL (8.4-10.2) L 06/29/19 04:37 Phosphorus 5.10 mg/dL (2.5-4.5) H 06/29/19 04:37 Magnesium 2.20 mg/dL (1.7-2.3) 06/29/19 04:37 Assessment and Plan 1. Acute kidney injury: CHARO likely secondary to obstrutcive uropathy. CT abdomen showed bilateral hydronephrosis. Although baseline renal function is unknown strongly suspected of CKD. Monitor renal function. Renal prognosis is guarded. Meds dosage based on GFR. Avoid nephrotoxic agents. 2. FEN: Metabolic acidosis, monitor. Volume status, will get CXR. Patient is on IV fluids and diuretics. Monitor lytes. 3. Obstrutive uropathy: Secondary to blood clot in the bladder. S/p cysto and clot evacuation. Followed by Urologist. 4. Acute blood loss Anemia: 2/2 hematuria. PRBC today. 5. Hematuria: H/o prostate cancer. 6. H/o aortic valve replacement and CHF: Monitor volume status. 7. DM type 2. 8. Hypertension.
--- NOTE | 2019-06-29 12:40 | XRay Report ---
CHEST 1 VIEW 12:25 PM INDICATION / CLINICAL INFORMATION: Respiratory distress. COMPARISON: None available. FINDINGS: SUPPORT DEVICES: None. HEART / MEDIASTINUM: There is a median sternotomy. The heart size is borderline. Pulmonary vasculatur e is normal for technique. LUNGS / PLEURA: There is minimal chronic appearing interstitial disease centrally. The lungs are othe rwise clear. There is no evidence of pleural effusion. No pneumothorax. ADDITIONAL FINDINGS: No significant additional findings. IMPRESSION: No acute findings. Signer Name: Yair Reaves MD Signed: 06/29/2019 12:36 PM Workstation Name: [id number]
[2019-06-29] MEDS ORDERED: WATER FOR IRRIG STERILE 2000 ML IR ONE (16:00)
[2019-06-29] MEDS: INSULIN GLARGINE 100 UNITS/ML SUB-Q SCH ×2 (16:15→22:37)
[2019-06-29 16:43] LABS: Hematocrit 24.7 % (35.5-45.6); Hemoglobin 8.2 gm/dl (11.8-15.2); Mean Corpuscular HGB Conc 33 % (32-34); Mean Corpuscular Volume 89 fl (84-94); Platelet Count 128 K/mm3 (140-440); Red Blood Count 2.77 M/mm3 (3.65-5.03); Red Cell Distribution Width 18.2 % (13.2-15.2)
[2019-06-29 17:54] LABS: Band Neutrophils # (Manual) 0.4 K/mm3; Basophils % (Manual) 0 % (0.0-1.8); Total Cells Counted 100
[2019-06-29 17:55] LABS: Anisocytosis 1+; Hypochromasia Few; Large Platelets Few; Platelet Estimate Consistent w Auto
[2019-06-29] MEDS: WATER FOR IRRIG STERILE 1,000 ML BOTTLE IR PRN (18:41)
[2019-06-29] MEDS: PRAZOSIN 1 MG CAP PO SCH (22:31)
[2019-06-30 05:08] LABS: Basophils % (Auto) 0.3 % (0.0-1.8); Eosinophils # (Auto) 0.3 K/mm3 (0.0-0.4); Hematocrit 24.3 % (35.5-45.6); Hemoglobin 7.9 gm/dl (11.8-15.2); Lymphocytes # (Auto) 1.3 K/mm3 (1.2-5.4); Mean Corpuscular HGB Conc 32 % (32-34); Mean Corpuscular Volume 91 fl (84-94); Monocytes # (Auto) 0.8 K/mm3 (0.0-0.8); Monocytes % (Auto) 5.1 % (0.0-7.3); Platelet Count 121 K/mm3 (140-440); Red Blood Count 2.68 M/mm3 (3.65-5.03); Red Cell Distribution Width 18.2 % (13.2-15.2)
[2019-06-30] MEDS: ALBUTEROL 2.5 MG/3 ML NEBU IH SCH ×3 (08:10→20:50)
[2019-06-30] MEDS: INSULIN LISPRO 100 UNIT/ML SUB-Q SCH ×5 (09:12→22:49)
[2019-06-30] MEDS: hydrALAZINE 25 MG TAB PO SCH ×3 (09:13→22:32)
[2019-06-30] MEDS: TORSEMIDE 10 MG TAB PO SCH ×2 (09:13→22:32)
[2019-06-30] MEDS: WATER FOR IRRIG STERILE 1,000 ML BOTTLE IR PRN (09:15)
--- NOTE | 2019-06-30 09:24 | Progress Note ---
Assessment and Plan 1. Acute kidney injury: CHARO likely secondary to obstrutcive uropathy. CT abdomen showed bilateral hydronephrosis. Although baseline renal function is unknown strongly suspected of CKD. Renal function is improving. Monitor renal function. Renal prognosis is guarded. Meds dosage based on GFR. Avoid nephrotoxic agents. 2. FEN: Metabolic acidosis, improved. Monitor lytes. 3. Obstrutive uropathy: Secondary to blood clot in the bladder. S/p cysto and clot evacuation. Followed by Urologist. 4. Acute blood loss Anemia: 2/2 hematuria. S/p PRBC. 5. Hematuria: H/o prostate cancer. 6. H/o aortic valve replacement and CHF: Monitor volume status. 7. DM type 2. 8. Hypertension. Examination: General appearance: well-developed, well-nourished, appears stated age, obese, not in distress HEENT: ATNC, ERICK, hearing intact, vision intact Neck: neck supple, trachea midline Respiratory: ctab Heart: regular, S1S2, no murmur Gastrointestinal: obese, normoactive bowel sounds, not tender Integumentary: no rash, warm and dry : Marina catheter with pink urine Neurologic: no focal deficit, no asterixis, slight confusion Ext: no edema Psychiatric: cooperative Subjective Date of service: 06/30/19 Interval history: Patient was seen and examined at the bedside. Objective - Vital Signs Vital signs: Vital Signs - 12hr 06/29/19 06/29/19 06/29/19 21:30 21:40 21:50 Temperature Pulse Rate 64 67 69 Pulse Rate [ Anterior Bilateral Throughout] Pulse Rate [ From Monitor] Respiratory 20 19 17 Rate Respiratory Rate [Anterior Bilateral Throughout] Blood Pressure 143/66 133/57 133/57 O2 Sat by Pulse 97 97 99 Oximetry 06/29/19 06/29/19 06/29/19 22:00 22:10 22:20 Temperature Pulse Rate 64 64 65 Pulse Rate [ Anterior Bilateral Throughout] Pulse Rate [ From Monitor] Respiratory 20 22 22 Rate Respiratory Rate [Anterior Bilateral Throughout] Blood Pressure 133/57 146/75 146/75 O2 Sat by Pulse 97 98 97 Oximetry 06/29/19 06/29/19 06/29/19 22:30 22:31 22:32 Temperature Pulse Rate 65 72 72 Pulse Rate [ Anterior Bilateral Throughout] Pulse Rate [ From Monitor] Respiratory 16 Rate Respiratory Rate [Anterior Bilateral Throughout] Blood Pressure 146/75 145/60 145/60 O2 Sat by Pulse 99 Oximetry 06/29/19 06/29/19 06/29/19 22:40 22:50 23:00 Temperature Pulse Rate 66 64 65 Pulse Rate [ Anterior Bilateral Throughout] Pulse Rate [ From Monitor] Respiratory 17 22 16 Rate Respiratory Rate [Anterior Bilateral Throughout] Blood Pressure 145/60 145/60 145/60 O2 Sat by Pulse 96 95 97 Oximetry 06/29/19 06/29/19 06/29/19 23:10 23:20 23:30 Temperature Pulse Rate 64 61 62 Pulse Rate [ Anterior Bilateral Throughout] Pulse Rate [ From Monitor] Respiratory 19 13 19 Rate Respiratory Rate [Anterior Bilateral Throughout] Blood Pressure 133/60 133/60 133/60 O2 Sat by Pulse 96 97 97 Oximetry 06/29/19 06/29/19 06/30/19 23:40 23:50 00:00 Temperature 98.9 F Pulse Rate 61 63 63 Pulse Rate [ Anterior Bilateral Throughout] Pulse Rate [ 75 From Monitor] Respiratory 18 19 18 Rate Respiratory Rate [Anterior Bilateral Throughout] Blood Pressure 111/39 111/39 111/39 O2 Sat by Pulse 97 97 98 Oximetry 06/30/19 06/30/19 06/30/19 00:10 00:20 00:30 Temperature Pulse Rate 67 62 61 Pulse Rate [ Anterior Bilateral Throughout] Pulse Rate [ From Monitor] Respiratory 18 19 29 H Rate Respiratory Rate [Anterior Bilateral Throughout] Blood Pressure 129/57 129/57 129/57 O2 Sat by Pulse 95 99 99 Oximetry 06/30/19 06/30/19 06/30/19 00:40 00:50 01:00 Temperature Pulse Rate 63 64 62 Pulse Rate [ Anterior Bilateral Throughout] Pulse Rate [ From Monitor] Respiratory 29 H 36 H 25 H Rate Respiratory Rate [Anterior Bilateral Throughout] Blood Pressure 134/52 134/52 134/52 O2 Sat by Pulse 97 99 98 Oximetry 06/30/19 06/30/19 06/30/19 01:10 01:20 01:30 Temperature Pulse Rate 62 61 61 Pulse Rate [ Anterior Bilateral Throughout] Pulse Rate [ From Monitor] Respiratory 26 H 24 18 Rate Respiratory Rate [Anterior Bilateral Throughout] Blood Pressure 128/54 128/54 128/54 O2 Sat by Pulse 99 97 98 Oximetry 06/30/19 06/30/19 06/30/19 01:40 01:50 02:00 Temperature Pulse Rate 65 62 65 Pulse Rate [ Anterior Bilateral Throughout] Pulse Rate [ From Monitor] Respiratory 18 26 H 24 Rate Respiratory Rate [Anterior Bilateral Throughout] Blood Pressure 116/53 116/53 122/54 O2 Sat by Pulse 97 96 96 Oximetry 06/30/19 06/30/19 06/30/19 02:10 02:20 02:30 Temperature Pulse Rate 63 60 66 Pulse Rate [ Anterior Bilateral Throughout] Pulse Rate [ From Monitor] Respiratory 23 25 H 24 Rate Respiratory Rate [Anterior Bilateral Throughout] Blood Pressure 116/53 116/53 116/53 O2 Sat by Pulse 94 95 85 Oximetry 06/30/19 06/30/19 06/30/19 02:40 02:50 03:00 Temperature Pulse Rate 64 60 66 Pulse Rate [ Anterior Bilateral Throughout] Pulse Rate [ From Monitor] Respiratory 23 19 24 Rate Respiratory Rate [Anterior Bilateral Throughout] Blood Pressure 122/53 122/53 122/53 O2 Sat by Pulse 97 96 82 L Oximetry 06/30/19 06/30/19 06/30/19 03:10 03:20 03:30 Temperature Pulse Rate 61 62 61 Pulse Rate [ Anterior Bilateral Throughout] Pulse Rate [ From Monitor] Respiratory 33 H 21 22 Rate Respiratory Rate [Anterior Bilateral Throughout] Blood Pressure 122/53 122/53 122/53 O2 Sat by Pulse 92 84 87 Oximetry 06/30/19 06/30/19 06/30/19 03:32 03:40 03:50 Temperature Pulse Rate 69 61 60 Pulse Rate [ Anterior Bilateral Throughout] Pulse Rate [ From Monitor] Respiratory 18 19 22 Rate Respiratory Rate [Anterior Bilateral Throughout] Blood Pressure 138/48 126/48 126/48 O2 Sat by Pulse 98 98 98 Oximetry 06/30/19 06/30/19 06/30/19 03:57 04:00 04:10 Temperature 98.5 F Pulse Rate 59 L 63 Pulse Rate [ Anterior Bilateral Throughout] Pulse Rate [ 82 From Monitor] Respiratory 30 H 19 Rate Respiratory Rate [Anterior Bilateral Throughout] Blood Pressure 126/48 124/54 O2 Sat by Pulse 97 97 Oximetry 06/30/19 06/30/19 06/30/19 04:20 04:30 04:40 Temperature Pulse Rate 61 66 65 Pulse Rate [ Anterior Bilateral Throughout] Pulse Rate [ From Monitor] Respiratory 25 H 19 19 Rate Respiratory Rate [Anterior Bilateral Throughout] Blood Pressure 124/54 124/54 124/54 O2 Sat by Pulse 89 98 99 Oximetry 06/30/19 06/30/19 06/30/19 04:50 05:00 05:10 Temperature Pulse Rate 66 60 66 Pulse Rate [ Anterior Bilateral Throughout] Pulse Rate [ From Monitor] Respiratory 20 18 17 Rate Respiratory Rate [Anterior Bilateral Throughout] Blood Pressure 124/54 124/54 101/53 O2 Sat by Pulse 96 98 97 Oximetry 06/30/19 06/30/19 06/30/19 05:20 05:30 05:39 Temperature Pulse Rate 75 64 Pulse Rate [ Anterior Bilateral Throughout] Pulse Rate [ From Monitor] Respiratory 20 20 Rate Respiratory Rate [Anterior Bilateral Throughout] Blood Pressure 101/53 101/53 O2 Sat by Pulse 96 96 95 Oximetry 06/30/19 06/30/19 06/30/19 05:40 05:50 06:00 Temperature Pulse Rate 62 60 62 Pulse Rate [ Anterior Bilateral Throughout] Pulse Rate [ From Monitor] Respiratory 21 21 20 Rate Respiratory Rate [Anterior Bilateral Throughout] Blood Pressure 124/51 124/51 124/51 O2 Sat by Pulse 95 96 96 Oximetry 06/30/19 06/30/19 06/30/19 06:10 06:20 06:30 Temperature Pulse Rate 62 62 61 Pulse Rate [ Anterior Bilateral Throughout] Pulse Rate [ From Monitor] Respiratory 20 20 21 Rate Respiratory Rate [Anterior Bilateral Throughout] Blood Pressure 117/52 117/52 117/52 O2 Sat by Pulse 94 94 95 Oximetry 06/30/19 06/30/19 06/30/19 06:40 06:50 07:00 Temperature Pulse Rate 67 75 61 Pulse Rate [ Anterior Bilateral Throughout] Pulse Rate [ From Monitor] Respiratory 18 18 15 Rate Respiratory Rate [Anterior Bilateral Throughout] Blood Pressure 117/52 117/52 117/52 O2 Sat by Pulse 96 86 96 Oximetry 06/30/19 06/30/19 06/30/19 07:10 07:20 07:30 Temperature Pulse Rate 58 L 62 66 Pulse Rate [ Anterior Bilateral Throughout] Pulse Rate [ From Monitor] Respiratory 20 16 14 Rate Respiratory Rate [Anterior Bilateral Throughout] Blood Pressure 119/59 119/59 119/59 O2 Sat by Pulse 97 94 96 Oximetry 06/30/19 06/30/19 06/30/19 07:40 07:50 08:00 Temperature 97.2 F L Pulse Rate 65 59 L 63 Pulse Rate [ 68 Anterior Bilateral Throughout] Pulse Rate [ From Monitor] Respiratory 18 15 19 Rate Respiratory 20 Rate [Anterior Bilateral Throughout] Blood Pressure 128/58 128/58 128/58 O2 Sat by Pulse 97 97 97 Oximetry 06/30/19 06/30/19 06/30/19 08:10 08:16 08:20 Temperature Pulse Rate 71 64 Pulse Rate [ Anterior Bilateral Throughout] Pulse Rate [ From Monitor] Respiratory 19 19 Rate Respiratory Rate [Anterior Bilateral Throughout] Blood Pressure 117/55 117/55 O2 Sat by Pulse 93 96 96 Oximetry 06/30/19 06/30/19 06/30/19 08:30 08:40 08:50 Temperature Pulse Rate 66 66 67 Pulse Rate [ Anterior Bilateral Throughout] Pulse Rate [ From Monitor] Respiratory 18 21 13 Rate Respiratory Rate [Anterior Bilateral Throughout] Blood Pressure 117/55 167/63 167/63 O2 Sat by Pulse 100 99 99 Oximetry 06/30/19 06/30/19 06/30/19 09:00 09:10 09:20 Temperature Pulse Rate 73 69 67 Pulse Rate [ Anterior Bilateral Throughout] Pulse Rate [ From Monitor] Respiratory 14 23 24 Rate Respiratory Rate [Anterior Bilateral Throughout] Blood Pressure 167/63 157/66 167/63 O2 Sat by Pulse 96 98 97 Oximetry - Lab 06/30/19 04:23 06/30/19 04:23 Most recent lab results Calcium 8.0 mg/dL (8.4-10.2) L 06/30/19 04:23 Phosphorus 5.10 mg/dL (2.5-4.5) H 06/29/19 04:37 Magnesium 2.20 mg/dL (1.7-2.3) 06/29/19 04:37 Medications & Allergies - Medications Allergies/Adverse Reactions: Allergies No Known Allergies Allergy (Verified 06/27/19 03:52) Home Medications: Home Medications Medication Instructions Recorded Confirmed Last Taken Type Aspirin [Aspirin BABY CHEW TAB] 1 tab PO DAILY 06/27/19 06/27/19 Unknown History Atorvastatin Calcium [Lipitor] 1 tab PO DAILY 06/27/19 06/27/19 Unknown History Carvedilol [Coreg] 25 mg PO BID 06/27/19 06/27/19 Unknown History Insulin Aspart [Novolog Flexpen] 15 unit SQ DAILY 06/27/19 06/27/19 Unknown History Sertraline [Zoloft] 50 mg PO QDAY 06/27/19 06/27/19 Unknown History Terazosin HCl 1 tab PO QHS 06/27/19 06/27/19 Unknown History Torsemide [Demadex] 1 tab PO BID 06/27/19 06/27/19 Unknown History hydrALAZINE [Apresoline] 2 tab PO Q8HR 06/27/19 06/27/19 Unknown History Active Medications: Generic Name Dose Route Start Last Admin Trade Name Freq PRN Reason Stop Dose Admin Acetaminophen 650 mg 06/27/19 06:34 Tylenol PO Q4H PRN Pain MILD(1-3)/Fever >100.5/SIFUENTES Albuterol 2.5 mg 06/28/19 08:00 06/30/19 08:10 Proventil IH 2.5 mg TIDRT JONES Administration Atorvastatin Calcium 80 mg 06/28/19 22:00 06/29/19 22:33 Lipitor PO 80 mg QHS JONES Administration Carvedilol 12.5 mg 06/29/19 07:57 06/29/19 22:32 Coreg PO 12.5 mg BID JONES Administration Dextrose 50 ml 06/27/19 06:34 D50w (25gm) Syringe IV Q30MIN PRN Hypoglycemia Hydralazine HCl 50 mg 06/28/19 09:21 06/30/19 09:13 Apresoline PO Not Given Q8HR [facility] Hydromorphone HCl 1 mg 06/27/19 10:41 06/27/19 16:20 Dilaudid IV 1 mg Q3H PRN Administration Pain , Severe (7-10) Cefazolin Sodium 1 gm in 50 mls @ 100 mls/hr 06/28/19 11:00 06/29/19 22:29 Ancef/Ns 1 Gm/50 Ml IV 100 mls/hr Q12H JONES Administration Sodium Chloride 1,000 mls @ 75 mls/hr 06/29/19 11:00 Nacl 0.9% 1000 Ml IV DIRECT [facility] Insulin Glargine 20 units 06/28/19 22:00 06/29/19 22:37 Lantus SUB-Q 20 units QHS JONES Administration Insulin Human Lispro 0 unit 06/27/19 12:00 06/30/19 09:12 Humalog SUB-Q Not Given Q6HR [facility] Protocol Insulin Human Lispro 15 unit 06/28/19 10:00 06/29/19 10:37 Humalog SUB-Q 15 unit QAM JONES Administration Ondansetron HCl 4 mg 06/27/19 08:30 06/27/19 08:26 Zofran IV 4 mg Q8H PRN Administration Nausea And Vomiting Prazosin HCl 1 mg 06/28/19 22:00 06/29/19 22:31 Prazosin PO 1 mg QHS JONES Administration Sertraline HCl 50 mg 06/28/19 10:00 06/29/19 10:37 Zoloft PO 50 mg QDAY JONES Administration Sodium Chloride 10 ml 06/27/19 10:00 06/30/19 09:12 Sodium Chloride Flush Syringe 10 Ml IV Not Given BID JONES Sodium Chloride 10 ml 06/27/19 06:34 Sodium Chloride Flush Syringe 10 Ml IV 07/07/19 06:33 PRN PRN LINE FLUSH Sodium Chloride 2,000 ml 06/27/19 14:00 Nacl 0.9% IR DIRECT JONES Sodium Chloride 1,000 ml 06/27/19 16:40 Nacl 0.9% IR PRN PRN Wound Care Sterile Water 1,000 ml 06/29/19 16:23 06/29/19 18:41 Water For Irrig Sterile IR 1,000 ml PRN PRN Administration Bladder manual irrigation Torsemide 20 mg 06/28/19 18:00 06/30/19 09:13 Demadex PO Not Given BID@0600,1800 [facility]
[2019-06-30] MEDS: HYDROmorphone 1 MG/1 ML INJ IV PRN (09:42)
[2019-06-30] MEDS: SERTRALINE 50 MG TAB PO SCH (09:43)
[2019-06-30] MEDS: CARVEDILOL 25 MG TAB PO SCH (09:44)
[2019-06-30] MEDS: SODIUM CHLORIDE 0.9% IRRIG SOLN 2000 ML IR SCH ×12 (09:45→22:16)
--- NOTE | 2019-06-30 10:05 | Progress Note ---
Subjective Date of service: 06/30/19 Interval history: s/p clot evacuation Pt resting well irrigated clots pink tinged 20cc in 30cc balloon Hb 6 this am----has received 1unit PRBCs after this reading 3 unit PRBCs GIVEN TOTAL/ 1 UNIT PLATELETS A/P prostate ca s/p radiation diabetes (uncontrolled) heart valve (on ASA) stop ASA continue cross drip manual irrigation q 4hours & prn regular diet ok to transfer for telemetry (remote on 3 surgical) discussed with nurse Objective - Constitutional Vitals: Vital Signs - 12hr 06/29/19 06/29/19 06/29/19 22:10 22:20 22:30 Temperature Pulse Rate 64 65 65 Pulse Rate [ Anterior Bilateral Throughout] Pulse Rate [ From Monitor] Respiratory 22 22 16 Rate Respiratory Rate [Anterior Bilateral Throughout] Blood Pressure 146/75 146/75 146/75 O2 Sat by Pulse 98 97 99 Oximetry 06/29/19 06/29/19 06/29/19 22:31 22:32 22:40 Temperature Pulse Rate 72 72 66 Pulse Rate [ Anterior Bilateral Throughout] Pulse Rate [ From Monitor] Respiratory 17 Rate Respiratory Rate [Anterior Bilateral Throughout] Blood Pressure 145/60 145/60 145/60 O2 Sat by Pulse 96 Oximetry 06/29/19 06/29/19 06/29/19 22:50 23:00 23:10 Temperature Pulse Rate 64 65 64 Pulse Rate [ Anterior Bilateral Throughout] Pulse Rate [ From Monitor] Respiratory 22 16 19 Rate Respiratory Rate [Anterior Bilateral Throughout] Blood Pressure 145/60 145/60 133/60 O2 Sat by Pulse 95 97 96 Oximetry 06/29/19 06/29/19 06/29/19 23:20 23:30 23:40 Temperature Pulse Rate 61 62 61 Pulse Rate [ Anterior Bilateral Throughout] Pulse Rate [ From Monitor] Respiratory 13 19 18 Rate Respiratory Rate [Anterior Bilateral Throughout] Blood Pressure 133/60 133/60 111/39 O2 Sat by Pulse 97 97 97 Oximetry 06/29/19 06/30/19 06/30/19 23:50 00:00 00:10 Temperature 98.9 F Pulse Rate 63 63 67 Pulse Rate [ Anterior Bilateral Throughout] Pulse Rate [ 75 From Monitor] Respiratory 19 18 18 Rate Respiratory Rate [Anterior Bilateral Throughout] Blood Pressure 111/39 111/39 129/57 O2 Sat by Pulse 97 98 95 Oximetry 06/30/19 06/30/19 06/30/19 00:20 00:30 00:40 Temperature Pulse Rate 62 61 63 Pulse Rate [ Anterior Bilateral Throughout] Pulse Rate [ From Monitor] Respiratory 19 29 H 29 H Rate Respiratory Rate [Anterior Bilateral Throughout] Blood Pressure 129/57 129/57 134/52 O2 Sat by Pulse 99 99 97 Oximetry 06/30/19 06/30/19 06/30/19 00:50 01:00 01:10 Temperature Pulse Rate 64 62 62 Pulse Rate [ Anterior Bilateral Throughout] Pulse Rate [ From Monitor] Respiratory 36 H 25 H 26 H Rate Respiratory Rate [Anterior Bilateral Throughout] Blood Pressure 134/52 134/52 128/54 O2 Sat by Pulse 99 98 99 Oximetry 06/30/19 06/30/19 06/30/19 01:20 01:30 01:40 Temperature Pulse Rate 61 61 65 Pulse Rate [ Anterior Bilateral Throughout] Pulse Rate [ From Monitor] Respiratory 24 18 18 Rate Respiratory Rate [Anterior Bilateral Throughout] Blood Pressure 128/54 128/54 116/53 O2 Sat by Pulse 97 98 97 Oximetry 06/30/19 06/30/19 06/30/19 01:50 02:00 02:10 Temperature Pulse Rate 62 65 63 Pulse Rate [ Anterior Bilateral Throughout] Pulse Rate [ From Monitor] Respiratory 26 H 24 23 Rate Respiratory Rate [Anterior Bilateral Throughout] Blood Pressure 116/53 122/54 116/53 O2 Sat by Pulse 96 96 94 Oximetry 06/30/19 06/30/19 06/30/19 02:20 02:30 02:40 Temperature Pulse Rate 60 66 64 Pulse Rate [ Anterior Bilateral Throughout] Pulse Rate [ From Monitor] Respiratory 25 H 24 23 Rate Respiratory Rate [Anterior Bilateral Throughout] Blood Pressure 116/53 116/53 122/53 O2 Sat by Pulse 95 85 97 Oximetry 06/30/19 06/30/19 06/30/19 02:50 03:00 03:10 Temperature Pulse Rate 60 66 61 Pulse Rate [ Anterior Bilateral Throughout] Pulse Rate [ From Monitor] Respiratory 19 24 33 H Rate Respiratory Rate [Anterior Bilateral Throughout] Blood Pressure 122/53 122/53 122/53 O2 Sat by Pulse 96 82 L 92 Oximetry 06/30/19 06/30/19 06/30/19 03:20 03:30 03:32 Temperature Pulse Rate 62 61 69 Pulse Rate [ Anterior Bilateral Throughout] Pulse Rate [ From Monitor] Respiratory 21 22 18 Rate Respiratory Rate [Anterior Bilateral Throughout] Blood Pressure 122/53 122/53 138/48 O2 Sat by Pulse 84 87 98 Oximetry 06/30/19 06/30/19 06/30/19 03:40 03:50 03:57 Temperature 98.5 F Pulse Rate 61 60 Pulse Rate [ Anterior Bilateral Throughout] Pulse Rate [ From Monitor] Respiratory 19 22 Rate Respiratory Rate [Anterior Bilateral Throughout] Blood Pressure 126/48 126/48 O2 Sat by Pulse 98 98 Oximetry 06/30/19 06/30/19 06/30/19 04:00 04:10 04:20 Temperature Pulse Rate 59 L 63 61 Pulse Rate [ Anterior Bilateral Throughout] Pulse Rate [ 82 From Monitor] Respiratory 30 H 19 25 H Rate Respiratory Rate [Anterior Bilateral Throughout] Blood Pressure 126/48 124/54 124/54 O2 Sat by Pulse 97 97 89 Oximetry 06/30/19 06/30/19 06/30/19 04:30 04:40 04:50 Temperature Pulse Rate 66 65 66 Pulse Rate [ Anterior Bilateral Throughout] Pulse Rate [ From Monitor] Respiratory 19 19 20 Rate Respiratory Rate [Anterior Bilateral Throughout] Blood Pressure 124/54 124/54 124/54 O2 Sat by Pulse 98 99 96 Oximetry 06/30/19 06/30/19 06/30/19 05:00 05:10 05:20 Temperature Pulse Rate 60 66 75 Pulse Rate [ Anterior Bilateral Throughout] Pulse Rate [ From Monitor] Respiratory 18 17 20 Rate Respiratory Rate [Anterior Bilateral Throughout] Blood Pressure 124/54 101/53 101/53 O2 Sat by Pulse 98 97 96 Oximetry 06/30/19 06/30/19 06/30/19 05:30 05:39 05:40 Temperature Pulse Rate 64 62 Pulse Rate [ Anterior Bilateral Throughout] Pulse Rate [ From Monitor] Respiratory 20 21 Rate Respiratory Rate [Anterior Bilateral Throughout] Blood Pressure 101/53 124/51 O2 Sat by Pulse 96 95 95 Oximetry 06/30/19 06/30/19 06/30/19 05:50 06:00 06:10 Temperature Pulse Rate 60 62 62 Pulse Rate [ Anterior Bilateral Throughout] Pulse Rate [ From Monitor] Respiratory 21 20 20 Rate Respiratory Rate [Anterior Bilateral Throughout] Blood Pressure 124/51 124/51 117/52 O2 Sat by Pulse 96 96 94 Oximetry 06/30/19 06/30/19 06/30/19 06:20 06:30 06:40 Temperature Pulse Rate 62 61 67 Pulse Rate [ Anterior Bilateral Throughout] Pulse Rate [ From Monitor] Respiratory 20 21 18 Rate Respiratory Rate [Anterior Bilateral Throughout] Blood Pressure 117/52 117/52 117/52 O2 Sat by Pulse 94 95 96 Oximetry 06/30/19 06/30/19 06/30/19 06:50 07:00 07:10 Temperature Pulse Rate 75 61 58 L Pulse Rate [ Anterior Bilateral Throughout] Pulse Rate [ From Monitor] Respiratory 18 15 20 Rate Respiratory Rate [Anterior Bilateral Throughout] Blood Pressure 117/52 117/52 119/59 O2 Sat by Pulse 86 96 97 Oximetry 06/30/19 06/30/19 06/30/19 07:20 07:30 07:40 Temperature Pulse Rate 62 66 65 Pulse Rate [ Anterior Bilateral Throughout] Pulse Rate [ From Monitor] Respiratory 16 14 18 Rate Respiratory Rate [Anterior Bilateral Throughout] Blood Pressure 119/59 119/59 128/58 O2 Sat by Pulse 94 96 97 Oximetry 06/30/19 06/30/19 06/30/19 07:50 08:00 08:10 Temperature 97.2 F L Pulse Rate 59 L 63 71 Pulse Rate [ 68 Anterior Bilateral Throughout] Pulse Rate [ From Monitor] Respiratory 15 19 19 Rate Respiratory 20 Rate [Anterior Bilateral Throughout] Blood Pressure 128/58 128/58 117/55 O2 Sat by Pulse 97 97 93 Oximetry 06/30/19 06/30/19 06/30/19 08:16 08:20 08:30 Temperature Pulse Rate 64 66 Pulse Rate [ Anterior Bilateral Throughout] Pulse Rate [ From Monitor] Respiratory 19 18 Rate Respiratory Rate [Anterior Bilateral Throughout] Blood Pressure 117/55 117/55 O2 Sat by Pulse 96 96 100 Oximetry 06/30/19 06/30/19 06/30/19 08:40 08:50 09:00 Temperature Pulse Rate 66 67 73 Pulse Rate [ Anterior Bilateral Throughout] Pulse Rate [ From Monitor] Respiratory 21 13 14 Rate Respiratory Rate [Anterior Bilateral Throughout] Blood Pressure 167/63 167/63 167/63 O2 Sat by Pulse 99 99 96 Oximetry 06/30/19 06/30/19 06/30/19 09:10 09:20 09:44 Temperature Pulse Rate 69 67 71 Pulse Rate [ Anterior Bilateral Throughout] Pulse Rate [ From Monitor] Respiratory 23 24 Rate Respiratory Rate [Anterior Bilateral Throughout] Blood Pressure 157/66 167/63 161/64 O2 Sat by Pulse 98 97 Oximetry - Labs CBC & Chem 7: 06/30/19 04:23 06/30/19 04:23 Labs: Abnormal lab results 06/27/19 06/29/19 06/29/19 Range/Units 00:20 12:46 16:26 WBC 21.1 H (4.5-11.0) K/mm3 RBC 2.77 L (3.65-5.03) M/mm3 Hgb 8.2 L (11.8-15.2) gm/dl Hct 24.7 L (35.5-45.6) % RDW 18.2 H (13.2-15.2) % Plt Count 128 L (140-440) K/mm3 Lymph % (Auto) (13.4-35.0) % Seg Neutrophils % (40.0-70.0) % Seg Neuts % (Manual) 87.0 H (40.0-70.0) % Lymphocytes % (Manual) 5.0 L (13.4-35.0) % Seg Neutrophils # (1.8-7.7) K/mm3 Seg Neutrophils # Man 18.4 H (1.8-7.7) K/mm3 Lymphocytes # (Manual) 1.1 L (1.2-5.4) K/mm3 Monocytes # (Manual) 1.1 H (0.0-0.8) K/mm3 BUN (9-20) mg/dL Creatinine (0.8-1.5) mg/dL Glucose (75-100) mg/dL POC Glucose 193 H (70-105) Calcium (8.4-10.2) mg/dL Crossmatch See Detail 06/29/19 06/29/19 06/30/19 Range/Units 18:29 22:45 00:29 WBC (4.5-11.0) K/mm3 RBC (3.65-5.03) M/mm3 Hgb (11.8-15.2) gm/dl Hct (35.5-45.6) % RDW (13.2-15.2) % Plt Count (140-440) K/mm3 Lymph % (Auto) (13.4-35.0) % Seg Neutrophils % (40.0-70.0) % Seg Neuts % (Manual) (40.0-70.0) % Lymphocytes % (Manual) (13.4-35.0) % Seg Neutrophils # (1.8-7.7) K/mm3 Seg Neutrophils # Man (1.8-7.7) K/mm3 Lymphocytes # (Manual) (1.2-5.4) K/mm3 Monocytes # (Manual) (0.0-0.8) K/mm3 BUN (9-20) mg/dL Creatinine (0.8-1.5) mg/dL Glucose (75-100) mg/dL POC Glucose 210 H 208 H 201 H (70-105) Calcium (8.4-10.2) mg/dL Crossmatch 06/30/19 06/30/19 06/30/19 Range/Units 04:23 04:23 05:23 WBC 16.4 H (4.5-11.0) K/mm3 RBC 2.68 L (3.65-5.03) M/mm3 Hgb 7.9 L (11.8-15.2) gm/dl Hct 24.3 L (35.5-45.6) % RDW 18.2 H (13.2-15.2) % Plt Count 121 L (140-440) K/mm3 Lymph % (Auto) 8.0 L (13.4-35.0) % Seg Neutrophils % 84.6 H (40.0-70.0) % Seg Neuts % (Manual) (40.0-70.0) % Lymphocytes % (Manual) (13.4-35.0) % Seg Neutrophils # 13.9 H (1.8-7.7) K/mm3 Seg Neutrophils # Man (1.8-7.7) K/mm3 Lymphocytes # (Manual) (1.2-5.4) K/mm3 Monocytes # (Manual) (0.0-0.8) K/mm3 BUN 72 H (9-20) mg/dL Creatinine 2.9 H (0.8-1.5) mg/dL Glucose 172 H (75-100) mg/dL POC Glucose 188 H (70-105) Calcium 8.0 L (8.4-10.2) mg/dL Crossmatch Medications & Allergies - Medications Allergies/Adverse Reactions: Allergies No Known Allergies Allergy (Verified 06/27/19 03:52) Home Medications: Home Medications Medication Instructions Recorded Confirmed Last Taken Type Aspirin [Aspirin BABY CHEW TAB] 1 tab PO DAILY 06/27/19 06/27/19 Unknown History Atorvastatin Calcium [Lipitor] 1 tab PO DAILY 06/27/19 06/27/19 Unknown History Carvedilol [Coreg] 25 mg PO BID 06/27/19 06/27/19 Unknown History Insulin Aspart [Novolog Flexpen] 15 unit SQ DAILY 06/27/19 06/27/19 Unknown History Sertraline [Zoloft] 50 mg PO QDAY 06/27/19 06/27/19 Unknown History Terazosin HCl 1 tab PO QHS 06/27/19 06/27/19 Unknown History Torsemide [Demadex] 1 tab PO BID 06/27/19 06/27/19 Unknown History hydrALAZINE [Apresoline] 2 tab PO Q8HR 06/27/19 06/27/19 Unknown History Active Medications: Generic Name Dose Route Start Last Admin Trade Name Freq PRN Reason Stop Dose Admin Acetaminophen 650 mg 06/27/19 06:34 Tylenol PO Q4H PRN Pain MILD(1-3)/Fever >100.5/SIFUENTES Albuterol 2.5 mg 06/28/19 08:00 06/30/19 08:10 Proventil IH 2.5 mg TIDRT JONES Administration Atorvastatin Calcium 80 mg 06/28/19 22:00 06/29/19 22:33 Lipitor PO 80 mg QHS JONES Administration Carvedilol 12.5 mg 06/29/19 07:57 06/30/19 09:44 Coreg PO 12.5 mg BID JONES Administration Dextrose 50 ml 06/27/19 06:34 D50w (25gm) Syringe IV Q30MIN PRN Hypoglycemia Hydralazine HCl 50 mg 06/28/19 09:21 06/30/19 09:13 Apresoline PO Not Given Q8HR JONES Hydromorphone HCl 1 mg 06/27/19 10:41 06/30/19 09:42 Dilaudid IV 1 mg Q3H PRN Administration Pain , Severe (7-10) Cefazolin Sodium 1 gm in 50 mls @ 100 mls/hr 06/28/19 11:00 06/29/19 22:29 Ancef/Ns 1 Gm/50 Ml IV 100 mls/hr Q12H JONES Administration Sodium Chloride 1,000 mls @ 75 mls/hr 06/29/19 11:00 Nacl 0.9% 1000 Ml IV DIRECT JONES Insulin Glargine 20 units 06/28/19 22:00 06/29/19 22:37 Lantus SUB-Q 20 units QHS JONES Administration Insulin Human Lispro 0 unit 06/27/19 12:00 06/30/19 09:12 Humalog SUB-Q Not Given Q6HR [facility] Protocol Insulin Human Lispro 15 unit 06/28/19 10:00 06/30/19 09:44 Humalog SUB-Q 15 unit QAM JONES Administration Ondansetron HCl 4 mg 06/27/19 08:30 06/27/19 08:26 Zofran IV 4 mg Q8H PRN Administration Nausea And Vomiting Prazosin HCl 1 mg 06/28/19 22:00 06/29/19 22:31 Prazosin PO 1 mg QHS JONES Administration Sertraline HCl 50 mg 06/28/19 10:00 06/30/19 09:43 Zoloft PO 50 mg QDAY JONES Administration Sodium Chloride 10 ml 06/27/19 10:00 06/30/19 09:45 Sodium Chloride Flush Syringe 10 Ml IV 10 ml BID JONES Administration Sodium Chloride 10 ml 06/27/19 06:34 Sodium Chloride Flush Syringe 10 Ml IV 07/07/19 06:33 PRN PRN LINE FLUSH Sodium Chloride 2,000 ml 06/27/19 14:00 06/30/19 09:46 Nacl 0.9% IR 2,000 ml DIRECT JONES Administration Sodium Chloride 1,000 ml 06/27/19 16:40 Nacl 0.9% IR PRN PRN Wound Care Sterile Water 1,000 ml 06/29/19 16:23 06/29/19 18:41 Water For Irrig Sterile IR 1,000 ml PRN PRN Administration Bladder manual irrigation Torsemide 20 mg 06/28/19 18:00 06/30/19 09:13 Demadex PO Not Given BID@0600,1800 [facility]
--- NOTE | 2019-06-30 10:48 | Progress Note ---
Assessment and Plan Assessment and plan: 79-year-old -[place] male with past medical history significant for prostate cancer status post radiation treatment presented to the emergency department complaining of hematuria. Hematuria -s/p cystoscopy -on cross drip -urology following Acute blood loss anemia -s/p clot evacuation by urology -status post blood transfusion with 2U of PRBCS -H/H improved, will monitor UTI -on IV cefazolin -wbc level trending down, will monitor -urine culture neg so far CHARO -Probably secondary to obstructive uropathy -CT abdomen/pelvis showed bilateral hydro-ureteronephrosis -cr level improving on IVF, will monitor -Nephrology following Metabolic acidosis -Likely secondary to the CHARO -improved Acute Respiratory distress post surgery -off continuous BiPAP DM2 -BG improved -Continue SSI and Lantus H/o platelet dysfunction -per urology note, 6 packs of platelets given in the PACU on 06/28 -s/p 1U of platelet infusion on 06/29 -will cont to monitor level Hyponatremia -improved Hypertension -uncontrolled -home anti-hypertensives resumed, will monitor BP CAD -stable HLD -cont statin BPH -cont prazosin H/o COPD/asthma with chronic hypoxemic respt failure -no acute exacerbation -cont 02 supplementation as needed with nightly BIPAP and neb tx H/o prostate cancer -for out-pt f/u H/o valve replacement -his home ASA on hold due to acute bleed Morbid obesity with BMI of 85.9 -lifestyle modification recommended DVT ppx: SCD due to acute bleed Disp: d/c per clinical course and clearance by urology History Interval history: Pt stated that he's going to , howevr he denies chest pain or SOB. Hematuria is improving. He also admits that at home, he uses 2L 02 via NC as needed during the day and BIPAP at night. Hospitalist Physical - Constitutional Vitals: Temp Pulse Resp BP Pulse Ox 97.2 F L 71 24 161/64 97 06/30/19 08:00 06/30/19 09:44 06/30/19 09:20 06/30/19 09:44 06/30/19 09:20 General appearance: Present: no acute distress, obese - EENT Eyes: Present: PERRL, EOM intact ENT: hearing intact, clear oral mucosa - Neck Neck: Present: supple - Respiratory Respiratory effort: normal Respiratory: bilateral: CTA, diminished - Cardiovascular Rhythm: regular Heart Sounds: Present: S1 & S2 - Extremities Extremities: No edema - Abdominal General gastrointestinal: soft, non-tender, normal bowel sounds - Integumentary Integumentary: Present: warm, dry - Psychiatric Psychiatric: depressed - Neurologic Neurologic: CNII-XII intact Results - Labs CBC & Chem 7: 06/30/19 04:23 06/30/19 04:23 Labs: Laboratory Last Values WBC 16.4 K/mm3 (4.5-11.0) H 06/30/19 04:23 RBC 2.68 M/mm3 (3.65-5.03) L 06/30/19 04:23 Hgb 7.9 gm/dl (11.8-15.2) L 06/30/19 04:23 Hct 24.3 % (35.5-45.6) L 06/30/19 04:23 MCV 91 fl (84-94) 06/30/19 04:23 MCH 29 pg (28-32) 06/30/19 04:23 MCHC 32 % (32-34) 06/30/19 04:23 RDW 18.2 % (13.2-15.2) H 06/30/19 04:23 Plt Count 121 K/mm3 (140-440) L 06/30/19 04:23 Lymph % (Auto) 8.0 % (13.4-35.0) L 06/30/19 04:23 [place] % (Auto) 5.1 % (0.0-7.3) 06/30/19 04:23 Eos % (Auto) 2.0 % (0.0-4.3) 06/30/19 04:23 Baso % (Auto) 0.3 % (0.0-1.8) 06/30/19 04:23 Lymph # 1.3 K/mm3 (1.2-5.4) 06/30/19 04:23 [place] # 0.8 K/mm3 (0.0-0.8) 06/30/19 04:23 Eos # 0.3 K/mm3 (0.0-0.4) 06/30/19 04:23 Baso # 0.0 K/mm3 (0.0-0.1) 06/30/19 04:23 Add Manual Diff Complete 06/29/19 16:26 Total Counted 100 06/29/19 16:26 Seg Neutrophils % 84.6 % (40.0-70.0) H 06/30/19 04:23 Seg Neuts % (Manual) 87.0 % (40.0-70.0) H 06/29/19 16:26 Band Neutrophils % 2.0 % 06/29/19 16:26 Lymphocytes % (Manual) 5.0 % (13.4-35.0) L 06/29/19 16:26 Reactive Lymphs % (Man) 0 % 06/29/19 16:26 Monocytes % (Manual) 5.0 % (0.0-7.3) 06/29/19 16:26 Eosinophils % (Manual) 1.0 % (0.0-4.3) 06/29/19 16:26 Basophils % (Manual) 0 % (0.0-1.8) 06/29/19 16:26 Metamyelocytes % 0 % 06/29/19 16:26 Myelocytes % 0 % 06/29/19 16:26 Promyelocytes % 0 % 06/29/19 16:26 Blast Cells % 0 % 06/29/19 16:26 Nucleated RBC % Not Reportable 06/29/19 16:26 Seg Neutrophils # 13.9 K/mm3 (1.8-7.7) H 06/30/19 04:23 Seg Neutrophils # Man 18.4 K/mm3 (1.8-7.7) H 06/29/19 16:26 Band Neutrophils # 0.4 K/mm3 06/29/19 16:26 Lymphocytes # (Manual) 1.1 K/mm3 (1.2-5.4) L 06/29/19 16:26 Abs React Lymphs (Man) 0.0 K/mm3 06/29/19 16:26 Monocytes # (Manual) 1.1 K/mm3 (0.0-0.8) H 06/29/19 16:26 Eosinophils # (Manual) 0.2 K/mm3 (0.0-0.4) 06/29/19 16:26 Basophils # (Manual) 0.0 K/mm3 (0.0-0.1) 06/29/19 16:26 Metamyelocytes # 0.0 K/mm3 06/29/19 16:26 Myelocytes # 0.0 K/mm3 06/29/19 16:26 Promyelocytes # 0.0 K/mm3 06/29/19 16:26 Blast Cells # 0.0 K/mm3 06/29/19 16:26 Pathologist Review 06/28/19 17:12 WBC Morphology Not Reportable 06/29/19 16:26 Hypersegmented Neuts Not Reportable 06/29/19 16:26 Hyposegmented Neuts Not Reportable 06/29/19 16:26 Hypogranular Neuts Not Reportable 06/29/19 16:26 Smudge Cells Not Reportable 06/29/19 16:26 Toxic Granulation Not Reportable 06/29/19 16:26 Toxic Vacuolation Not Reportable 06/29/19 16:26 Dohle Bodies Not Reportable 06/29/19 16:26 Pelger-Huet Anomaly Not Reportable 06/29/19 16:26 Zara Rods Not Reportable 06/29/19 16:26 Platelet Estimate Consistent w auto 06/29/19 16:26 Clumped Platelets Not Reportable 06/29/19 16:26 Plt Clumps, EDTA Not Reportable 06/29/19 16:26 Large Platelets Few 06/29/19 16:26 Giant Platelets Not Reportable 06/29/19 16:26 Platelet Satelliting Not Reportable 06/29/19 16:26 Plt Morphology Comment Not Reportable 06/29/19 16:26 RBC Morphology Not Reportable 06/29/19 16:26 Dimorphic RBCs Not Reportable 06/29/19 16:26 Polychromasia Not Reportable 06/29/19 16:26 Hypochromasia Few 06/29/19 16:26 Poikilocytosis Not Reportable 06/29/19 16:26 Anisocytosis 1+ 06/29/19 16:26 Microcytosis Not Reportable 06/29/19 16:26 Macrocytosis Not Reportable 06/29/19 16:26 Spherocytes Not Reportable 06/29/19 16:26 Pappenheimer Bodies Not Reportable 06/29/19 16:26 Sickle Cells Not Reportable 06/29/19 16:26 Target Cells Not Reportable 06/29/19 16:26 Tear Drop Cells Not Reportable 06/29/19 16:26 Ovalocytes Not Reportable 06/29/19 16:26 Helmet Cells Not Reportable 06/29/19 16:26 [place] Bodies Not Reportable 06/29/19 16:26 [place] Rings Not Reportable 06/29/19 16:26 [place] Cells Not Reportable 06/29/19 16:26 Bite Cells Not Reportable 06/29/19 16:26 Crenated Cell Not Reportable 06/29/19 16:26 Elliptocytes Not Reportable 06/29/19 16:26 Acanthocytes (Spur) Not Reportable 06/29/19 16:26 Rouleaux Not Reportable 06/29/19 16:26 Hemoglobin C Crystals Not Reportable 06/29/19 16:26 Schistocytes Not Reportable 06/29/19 16:26 Malaria parasites Not Reportable 06/29/19 16:26 [place] Bodies Not Reportable 06/29/19 16:26 Hem Pathologist Commnt No 06/29/19 16:26 PT 14.4 Sec. (12.2-14.9) 06/27/19 18:41 INR 1.13 (0.87-1.13) 06/27/19 18:41 APTT 21.5 Sec. (24.2-36.6) L 06/27/19 18:41 Sodium 141 mmol/L (137-145) D 06/30/19 04:23 Potassium 4.1 mmol/L (3.6-5.0) 06/30/19 04:23 Chloride 103.6 mmol/L (98-107) 06/30/19 04:23 Carbon Dioxide 23 mmol/L (22-30) 06/30/19 04:23 Anion Gap 19 mmol/L 06/30/19 04:23 BUN 72 mg/dL (9-20) H 06/30/19 04:23 Creatinine 2.9 mg/dL (0.8-1.5) H 06/30/19 04:23 Estimated GFR 26 ml/min 06/30/19 04:23 BUN/Creatinine Ratio 25 % 06/30/19 04:23 Glucose 172 mg/dL (75-100) H 06/30/19 04:23 POC Glucose 188 (70-105) H 06/30/19 05:23 Calcium 8.0 mg/dL (8.4-10.2) L 06/30/19 04:23 Phosphorus 5.10 mg/dL (2.5-4.5) H 06/29/19 04:37 Magnesium 2.20 mg/dL (1.7-2.3) 06/29/19 04:37 PTH Intact 177.9 pg/mL (15-65) H 06/29/19 04:37 Urine Color Yellow (Yellow) 06/27/19 05:09 Urine Turbidity Turbid (Clear) 06/27/19 05:09 Urine pH 7.0 (5.0-7.0) 06/27/19 05:09 Ur Specific [place] 1.030 (1.003-1.030) 06/27/19 05:09 Urine Protein 100 mg/dl mg/dL (Negative) 06/27/19 05:09 Urine Glucose (UA) 150 mg/dL (Negative) 06/27/19 05:09 Urine Ketones Neg mg/dL (Negative) 06/27/19 05:09 Urine Blood Lg (Negative) 06/27/19 05:09 Urine Nitrite Neg (Negative) 06/27/19 05:09 Urine Bilirubin Neg (Negative) 06/27/19 05:09 Urine Urobilinogen 2.0 mg/dL (<2.0) 06/27/19 05:09 Ur Leukocyte Esterase Neg (Negative) 06/27/19 05:09 Urine WBC (Auto) 82.0 /HPF (0.0-6.0) H 06/27/19 05:09 Urine RBC (Auto) > 182.0 /HPF (0.0-6.0) 06/27/19 05:09 Urine Bacteria (Auto) 1+ /HPF (Negative) 06/27/19 05:09 Urine Yeast (Budding) 3+ /HPF 06/27/19 05:09 Blood Type AB POSITIVE 06/27/19 00:20 Antibody Screen Negative 06/27/19 00:20 Crossmatch See Detail 06/27/19 00:20 Active Medications - Current Medications Current Medications: Generic Name Dose Route Start Last Admin Trade Name Freq PRN Reason Stop Dose Admin Acetaminophen 650 mg 06/27/19 06:34 Tylenol PO Q4H PRN Pain MILD(1-3)/Fever >100.5/SIFUENTES Albuterol 2.5 mg 06/28/19 08:00 06/30/19 08:10 Proventil IH 2.5 mg TIDRT JONES Administration Atorvastatin Calcium 80 mg 06/28/19 22:00 06/29/19 22:33 Lipitor PO 80 mg QHS JONES Administration Carvedilol 12.5 mg 06/29/19 07:57 06/30/19 09:44 Coreg PO 12.5 mg BID JONES Administration Dextrose 50 ml 06/27/19 06:34 D50w (25gm) Syringe IV Q30MIN PRN Hypoglycemia Hydralazine HCl 50 mg 06/28/19 09:21 06/30/19 09:13 Apresoline PO Not Given Q8HR JONES Hydromorphone HCl 1 mg 06/27/19 10:41 06/30/19 09:42 Dilaudid IV 1 mg Q3H PRN Administration Pain , Severe (7-10) Cefazolin Sodium 1 gm in 50 mls @ 100 mls/hr 06/28/19 11:00 06/29/19 22:29 Ancef/Ns 1 Gm/50 Ml IV 100 mls/hr Q12H JONES Administration Sodium Chloride 1,000 mls @ 75 mls/hr 06/29/19 11:00 Nacl 0.9% 1000 Ml IV DIRECT JONES Insulin Glargine 20 units 06/28/19 22:00 06/29/19 22:37 Lantus SUB-Q 20 units QHS JONES Administration Insulin Human Lispro 0 unit 06/27/19 12:00 06/30/19 09:12 Humalog SUB-Q Not Given Q6HR [facility] Protocol Insulin Human Lispro 15 unit 06/28/19 10:00 06/30/19 09:44 Humalog SUB-Q 15 unit QAM JONES Administration Ondansetron HCl 4 mg 06/27/19 08:30 06/27/19 08:26 Zofran IV 4 mg Q8H PRN Administration Nausea And Vomiting Prazosin HCl 1 mg 06/28/19 22:00 06/29/19 22:31 Prazosin PO 1 mg QHS JONES Administration Sertraline HCl 50 mg 06/28/19 10:00 06/30/19 09:43 Zoloft PO 50 mg QDAY JONES Administration Sodium Chloride 10 ml 06/27/19 10:00 06/30/19 09:45 Sodium Chloride Flush Syringe 10 Ml IV 10 ml BID JONES Administration Sodium Chloride 10 ml 06/27/19 06:34 Sodium Chloride Flush Syringe 10 Ml IV 07/07/19 06:33 PRN PRN LINE FLUSH Sodium Chloride 2,000 ml 06/27/19 14:00 06/30/19 09:46 Nacl 0.9% IR 2,000 ml DIRECT JONES Administration Sodium Chloride 1,000 ml 06/27/19 16:40 Nacl 0.9% IR PRN PRN Wound Care Sterile Water 1,000 ml 06/29/19 16:23 06/29/19 18:41 Water For Irrig Sterile IR 1,000 ml PRN PRN Administration Bladder manual irrigation Torsemide 20 mg 06/28/19 18:00 06/30/19 09:13 Demadex PO Not Given BID@0600,1800 JONES
[2019-06-30] MEDS ORDERED: CARVEDILOL 25 MG TAB PO SCH (10:52)
[2019-06-30] MEDS: ceFAZolin/NS 1 GM/50 ML 1 GM/50 ML BAG IV SCH ×2 (12:15→22:30)
[2019-06-30] MEDS: INSULIN GLARGINE 100 UNITS/ML SUB-Q SCH (22:31)
[2019-06-30] MEDS: PRAZOSIN 1 MG CAP PO SCH (22:32)
[2019-07-01] MEDS: SODIUM CHLORIDE 0.9% IRRIG SOLN 2000 ML IR SCH ×4 (00:42→04:18)
[2019-07-01] MEDS: INSULIN LISPRO 100 UNIT/ML SUB-Q SCH ×4 (01:03→12:18)
[2019-07-01] MEDS: HYDROmorphone 1 MG/1 ML INJ IV PRN (04:25)
[2019-07-01 05:23] LABS: Basophils % (Auto) 0.3 % (0.0-1.8); Eosinophils # (Auto) 0.5 K/mm3 (0.0-0.4); Eosinophils % (Auto) 4.1 % (0.0-4.3); Hematocrit 23.4 % (35.5-45.6); Hemoglobin 7.7 gm/dl (11.8-15.2); Lymphocytes # (Auto) 1.1 K/mm3 (1.2-5.4); Lymphocytes % (Auto) 8.8 % (13.4-35.0); Mean Corpuscular HGB Conc 33 % (32-34); Mean Corpuscular Volume 89 fl (84-94); Monocytes # (Auto) 0.8 K/mm3 (0.0-0.8); Monocytes % (Auto) 6.4 % (0.0-7.3); Platelet Count 137 K/mm3 (140-440); Red Blood Count 2.62 M/mm3 (3.65-5.03); Red Cell Distribution Width 17.9 % (13.2-15.2)
[2019-07-01] MEDS: hydrALAZINE 25 MG TAB PO SCH (05:50)
[2019-07-01] MEDS: TORSEMIDE 10 MG TAB PO SCH (05:56)
--- NOTE | 2019-07-01 08:34 | Progress Note ---
Assessment and Plan 1. Acute kidney injury: CHARO likely secondary to obstrutcive uropathy. CT abdomen showed bilateral hydronephrosis. Although baseline renal function is unknown strongly suspected of CKD. Renal function is improving. Monitor renal function. Renal prognosis is guarded. Meds dosage based on GFR. Avoid nephrotoxic agents. 2. FEN: Metabolic acidosis, improved. Monitor lytes. 3. Obstrutive uropathy: Secondary to blood clot in the bladder. S/p cysto and clot evacuation. Followed by Urologist. 4. Acute blood loss Anemia: 2/2 hematuria. S/p PRBC. 5. Hematuria: H/o prostate cancer. 6. H/o aortic valve replacement and CHF: Monitor volume status. 7. DM type 2. 8. Hypertension. Patient need Nephrology follow with me or at [facility]. Examination: General appearance: well-developed, well-nourished, appears stated age, obese, not in distress HEENT: ATNC, ERICK, hearing intact, vision intact Neck: neck supple, trachea midline Respiratory: ctab Heart: regular, S1S2, no murmur Gastrointestinal: obese, normoactive bowel sounds, not tender Integumentary: no rash, warm and dry : Marina catheter with faint pink urine Neurologic: no focal deficit, no asterixis, slight confusion Ext: no edema Psychiatric: cooperative Subjective Date of service: 07/01/19 Interval history: Patient was seen and examined at the bedside. Objective - Vital Signs Vital signs: Vital Signs - 12hr 06/30/19 06/30/19 06/30/19 20:50 21:05 22:44 Temperature Pulse Rate Pulse Rate [ 70 Anterior Bilateral Throughout] Pulse Rate [ 66 From Monitor] Respiratory Rate Respiratory 18 Rate [Anterior Bilateral Throughout] Blood Pressure 127/64 O2 Sat by Pulse Oximetry 07/01/19 07/01/19 07/01/19 00:28 01:00 04:59 Temperature 98.5 F 97.7 F Pulse Rate 66 67 66 Pulse Rate [ Anterior Bilateral Throughout] Pulse Rate [ From Monitor] Respiratory 16 17 Rate Respiratory Rate [Anterior Bilateral Throughout] Blood Pressure 117/60 106/49 O2 Sat by Pulse 95 94 Oximetry 07/01/19 05:50 Temperature Pulse Rate Pulse Rate [ Anterior Bilateral Throughout] Pulse Rate [ From Monitor] Respiratory Rate Respiratory Rate [Anterior Bilateral Throughout] Blood Pressure 106/49 O2 Sat by Pulse Oximetry - Lab 07/01/19 05:02 07/01/19 05:02 Most recent lab results Calcium 8.0 mg/dL (8.4-10.2) L 07/01/19 05:02 Phosphorus 5.10 mg/dL (2.5-4.5) H 06/29/19 04:37 Magnesium 2.20 mg/dL (1.7-2.3) 06/29/19 04:37 Medications & Allergies - Medications Allergies/Adverse Reactions: Allergies No Known Allergies Allergy (Verified 06/27/19 03:52) Home Medications: Home Medications Medication Instructions Recorded Confirmed Last Taken Type Atorvastatin Calcium [Lipitor] 1 tab PO DAILY 06/27/19 06/27/19 Unknown History Carvedilol [Coreg] 25 mg PO BID 06/27/19 06/27/19 Unknown History Insulin Aspart [NovoLOG Flexpen] 15 unit SQ DAILY 06/27/19 06/27/19 Unknown History Sertraline [Zoloft] 50 mg PO QDAY 06/27/19 06/27/19 Unknown History Terazosin HCl 1 tab PO QHS 06/27/19 06/27/19 Unknown History Torsemide [Demadex] 1 tab PO BID 06/27/19 06/27/19 Unknown History hydrALAZINE [Apresoline TAB] 2 tab PO Q8HR 06/27/19 06/27/19 Unknown History Ciprofloxacin HCl [Ciprofloxacin 500 mg PO Q12HR #14 tab 07/01/19 Unknown Rx TAB] traMADol [Ultram] 50 mg PO Q6HR PRN #14 tablet 07/01/19 Unknown Rx Active Medications: Generic Name Dose Route Start Last Admin Trade Name Freq PRN Reason Stop Dose Admin Acetaminophen 650 mg 06/27/19 06:34 Tylenol PO Q4H PRN Pain MILD(1-3)/Fever >100.5/SIFUENTES Albuterol 2.5 mg 06/28/19 08:00 06/30/19 20:50 Proventil IH 2.5 mg TIDRT JONES Administration Atorvastatin Calcium 80 mg 06/28/19 22:00 06/30/19 22:32 Lipitor PO 80 mg QHS JONES Administration Carvedilol 25 mg 06/30/19 10:52 06/30/19 22:44 Coreg PO 25 mg BID JONES Administration Dextrose 50 ml 06/27/19 06:34 D50w (25gm) Syringe IV Q30MIN PRN Hypoglycemia Hydralazine HCl 50 mg 06/28/19 09:21 07/01/19 05:50 Apresoline PO Not Given Q8HR JONES Hydromorphone HCl 1 mg 06/27/19 10:41 07/01/19 04:25 Dilaudid IV 1 mg Q3H PRN Administration Pain , Severe (7-10) Cefazolin Sodium 1 gm in 50 mls @ 100 mls/hr 06/28/19 11:00 06/30/19 22:30 Ancef/Ns 1 Gm/50 Ml IV 100 mls/hr Q12H JONES Administration Sodium Chloride 1,000 mls @ 75 mls/hr 06/29/19 11:00 Nacl 0.9% 1000 Ml IV DIRECT JONES Insulin Glargine 20 units 06/28/19 22:00 06/30/19 22:31 Lantus SUB-Q 20 units QHS JONES Administration Insulin Human Lispro 0 unit 06/27/19 12:00 07/01/19 06:13 Humalog SUB-Q Not Given Q6HR [facility] Protocol Insulin Human Lispro 15 unit 06/28/19 10:00 06/30/19 09:44 Humalog SUB-Q 15 unit QAM JONES Administration Ondansetron HCl 4 mg 06/27/19 08:30 06/27/19 08:26 Zofran IV 4 mg Q8H PRN Administration Nausea And Vomiting Prazosin HCl 1 mg 06/28/19 22:00 06/30/19 22:32 Prazosin PO 1 mg QHS JONES Administration Sertraline HCl 50 mg 06/28/19 10:00 06/30/19 09:43 Zoloft PO 50 mg QDAY JONES Administration Sodium Chloride 10 ml 06/27/19 10:00 06/30/19 22:44 Sodium Chloride Flush Syringe 10 Ml IV 10 ml BID JONES Administration Sodium Chloride 10 ml 06/27/19 06:34 Sodium Chloride Flush Syringe 10 Ml IV 07/07/19 06:33 PRN PRN LINE FLUSH Sodium Chloride 2,000 ml 06/27/19 14:00 07/01/19 04:18 Nacl 0.9% IR 2,000 ml DIRECT JONES Administration Sodium Chloride 1,000 ml 06/27/19 16:40 Nacl 0.9% IR PRN PRN Wound Care Sterile Water 1,000 ml 06/29/19 16:23 06/30/19 09:15 Water For Irrig Sterile IR 1,000 ml PRN PRN Administration Bladder manual irrigation Torsemide 20 mg 06/28/19 18:00 07/01/19 05:56 Demadex PO Not Given BID@0600,1800 JONES
[2019-07-01] MEDS: SERTRALINE 50 MG TAB PO SCH (09:59)
[2019-07-01] MEDS: ALBUTEROL 2.5 MG/3 ML NEBU IH SCH ×2 (10:32→15:40)
[2019-07-01 11:45] VITALS: BP 138/59
[2019-07-01] MEDS: ceFAZolin/NS 1 GM/50 ML 1 GM/50 ML BAG IV SCH (12:18)
--- NOTE | 2019-07-01 12:23 | Progress Note ---
Subjective Date of service: 07/01/19 Interval history: s/p clot evacuation Pt resting well NO clots pink tinged 20cc in 30cc balloon A/P prostate ca s/p radiation diabetes (improved heart valve (on ASA) stop ASA-- pt to discuss ASA with CARDS on f/u stopped cross drip regular diet ok to dc home with bermudez (needs cipro & ultram) discussed with nurse pt can f/u with [facility] or [facility] Objective - Constitutional Vitals: Vital Signs - 12hr 07/01/19 07/01/19 07/01/19 00:28 01:00 04:59 Temperature 98.5 F 97.7 F Pulse Rate 66 67 66 Pulse Rate [ Anterior Bilateral Throughout] Respiratory 16 17 Rate Respiratory Rate [Anterior Bilateral Throughout] Blood Pressure 117/60 106/49 O2 Sat by Pulse 95 94 Oximetry 07/01/19 07/01/19 07/01/19 05:00 05:50 10:01 Temperature 98.3 F Pulse Rate 63 66 Pulse Rate [ Anterior Bilateral Throughout] Respiratory 18 Rate Respiratory Rate [Anterior Bilateral Throughout] Blood Pressure 106/49 100/43 O2 Sat by Pulse 95 96 Oximetry 07/01/19 07/01/19 07/01/19 10:31 10:32 10:53 Temperature Pulse Rate 66 Pulse Rate [ 65 Anterior Bilateral Throughout] Respiratory Rate Respiratory 20 Rate [Anterior Bilateral Throughout] Blood Pressure 125/53 O2 Sat by Pulse 95 97 Oximetry 07/01/19 11:32 Temperature 98.4 F Pulse Rate 69 Pulse Rate [ Anterior Bilateral Throughout] Respiratory 18 Rate Respiratory Rate [Anterior Bilateral Throughout] Blood Pressure 138/59 O2 Sat by Pulse 97 Oximetry - Labs CBC & Chem 7: 07/01/19 05:02 07/01/19 05:02 Labs: Abnormal lab results 06/30/19 06/30/19 06/30/19 Range/Units 12:17 18:03 21:37 WBC (4.5-11.0) K/mm3 RBC (3.65-5.03) M/mm3 Hgb (11.8-15.2) gm/dl Hct (35.5-45.6) % RDW (13.2-15.2) % Plt Count (140-440) K/mm3 Lymph % (Auto) (13.4-35.0) % Lymph # (1.2-5.4) K/mm3 Eos # (0.0-0.4) K/mm3 Seg Neutrophils % (40.0-70.0) % Seg Neutrophils # (1.8-7.7) K/mm3 BUN (9-20) mg/dL Creatinine (0.8-1.5) mg/dL Glucose (75-100) mg/dL POC Glucose 182 H 225 H 236 H (70-105) Calcium (8.4-10.2) mg/dL 07/01/19 07/01/19 07/01/19 Range/Units 05:02 05:02 06:20 WBC 12.8 H (4.5-11.0) K/mm3 RBC 2.62 L (3.65-5.03) M/mm3 Hgb 7.7 L (11.8-15.2) gm/dl Hct 23.4 L (35.5-45.6) % RDW 17.9 H (13.2-15.2) % Plt Count 137 L (140-440) K/mm3 Lymph % (Auto) 8.8 L (13.4-35.0) % Lymph # 1.1 L (1.2-5.4) K/mm3 Eos # 0.5 H (0.0-0.4) K/mm3 Seg Neutrophils % 80.4 H (40.0-70.0) % Seg Neutrophils # 10.3 H (1.8-7.7) K/mm3 BUN 62 H (9-20) mg/dL Creatinine 2.2 H (0.8-1.5) mg/dL Glucose 124 H (75-100) mg/dL POC Glucose 127 H (70-105) Calcium 8.0 L (8.4-10.2) mg/dL 07/01/19 Range/Units 11:45 WBC (4.5-11.0) K/mm3 RBC (3.65-5.03) M/mm3 Hgb (11.8-15.2) gm/dl Hct (35.5-45.6) % RDW (13.2-15.2) % Plt Count (140-440) K/mm3 Lymph % (Auto) (13.4-35.0) % Lymph # (1.2-5.4) K/mm3 Eos # (0.0-0.4) K/mm3 Seg Neutrophils % (40.0-70.0) % Seg Neutrophils # (1.8-7.7) K/mm3 BUN (9-20) mg/dL Creatinine (0.8-1.5) mg/dL Glucose (75-100) mg/dL POC Glucose 230 H (70-105) Calcium (8.4-10.2) mg/dL Medications & Allergies - Medications Allergies/Adverse Reactions: Allergies No Known Allergies Allergy (Verified 06/27/19 03:52) Home Medications: Home Medications Medication Instructions Recorded Confirmed Last Taken Type Aspirin [Aspirin BABY CHEW TAB] 1 tab PO DAILY 06/27/19 06/27/19 Unknown History Atorvastatin Calcium [Lipitor] 1 tab PO DAILY 06/27/19 06/27/19 Unknown History Carvedilol [Coreg] 25 mg PO BID 06/27/19 06/27/19 Unknown History Insulin Aspart [Novolog Flexpen] 15 unit SQ DAILY 06/27/19 06/27/19 Unknown History Sertraline [Zoloft] 50 mg PO QDAY 06/27/19 06/27/19 Unknown History Terazosin HCl 1 tab PO QHS 06/27/19 06/27/19 Unknown History Torsemide [Demadex] 1 tab PO BID 06/27/19 06/27/19 Unknown History hydrALAZINE [Apresoline] 2 tab PO Q8HR 06/27/19 06/27/19 Unknown History Active Medications: Generic Name Dose Route Start Last Admin Trade Name Freq PRN Reason Stop Dose Admin Acetaminophen 650 mg 06/27/19 06:34 Tylenol PO Q4H PRN Pain MILD(1-3)/Fever >100.5/SIFUENTES Albuterol 2.5 mg 06/28/19 08:00 07/01/19 10:32 Proventil IH 2.5 mg TIDRT JONES Administration Atorvastatin Calcium 80 mg 06/28/19 22:00 06/30/19 22:32 Lipitor PO 80 mg QHS JONES Administration Carvedilol 25 mg 06/30/19 10:52 06/30/19 22:44 Coreg PO 25 mg BID JONES Administration Dextrose 50 ml 06/27/19 06:34 D50w (25gm) Syringe IV Q30MIN PRN Hypoglycemia Hydralazine HCl 50 mg 06/28/19 09:21 07/01/19 05:50 Apresoline PO Not Given Q8HR JONES Hydromorphone HCl 1 mg 06/27/19 10:41 07/01/19 04:25 Dilaudid IV 1 mg Q3H PRN Administration Pain , Severe (7-10) Cefazolin Sodium 1 gm in 50 mls @ 100 mls/hr 06/28/19 11:00 07/01/19 12:18 Ancef/Ns 1 Gm/50 Ml IV 100 mls/hr Q12H JONES Administration Sodium Chloride 1,000 mls @ 75 mls/hr 06/29/19 11:00 Nacl 0.9% 1000 Ml IV DIRECT JONES Insulin Glargine 20 units 06/28/19 22:00 06/30/19 22:31 Lantus SUB-Q 20 units QHS JONES Administration Insulin Human Lispro 0 unit 06/27/19 12:00 07/01/19 12:18 Humalog SUB-Q 2 unit Q6HR JONES Administration Protocol Insulin Human Lispro 15 unit 06/28/19 10:00 07/01/19 10:00 Humalog SUB-Q 15 unit QAM JONES Administration Ondansetron HCl 4 mg 06/27/19 08:30 06/27/19 08:26 Zofran IV 4 mg Q8H PRN Administration Nausea And Vomiting Prazosin HCl 1 mg 06/28/19 22:00 06/30/19 22:32 Prazosin PO 1 mg QHS JONES Administration Sertraline HCl 50 mg 06/28/19 10:00 07/01/19 09:59 Zoloft PO 50 mg QDAY JONES Administration Sodium Chloride 10 ml 06/27/19 10:00 07/01/19 10:00 Sodium Chloride Flush Syringe 10 Ml IV 10 ml BID JONES Administration Sodium Chloride 10 ml 06/27/19 06:34 Sodium Chloride Flush Syringe 10 Ml IV 07/07/19 06:33 PRN PRN LINE FLUSH Sodium Chloride 2,000 ml 06/27/19 14:00 07/01/19 04:18 Nacl 0.9% IR 2,000 ml DIRECT JONES Administration Sodium Chloride 1,000 ml 06/27/19 16:40 Nacl 0.9% IR PRN PRN Wound Care Sterile Water 1,000 ml 06/29/19 16:23 06/30/19 09:15 Water For Irrig Sterile IR 1,000 ml PRN PRN Administration Bladder manual irrigation Torsemide 20 mg 06/28/19 18:00 07/01/19 05:56 Demadex PO Not Given BID@0600,1800 JONES
--- NOTE | 2019-07-01 13:02 | Discharge Summary ---
Providers - Providers Date of Admission: 06/27/19 05:55 Attending physician: BETHANIE GODINEZ MD 06/27/19 05:26 Consult to Physician [CONS] Urgent Comment: Dr. Cook has seen the patient/ Amalia Consulting Provider: RICHARD NORIEGA Physician Instructions: Reason For Exam: hematuria, urine retention 06/28/19 14:31 Consult to Physician [CONS] Routine Comment: Consulting Provider: ANA SANCHEZ Physician Instructions: Reason For Exam: CHARO, hematuria Primary care physician: [employer] Hospitalization Condition: Stable Hospital course: s/p clot evacuation Pt resting well NO clots pink tinged 20cc in 30cc balloon A/P prostate ca s/p radiation diabetes (improved heart valve (on ASA) stop ASA-- pt to discuss ASA with CARDS on f/u stopped cross drip regular diet ok to dc home with bermudez (needs cipro & ultram) discussed with nurse pt can f/u with [facility] or [facility] Objective Correction of A/P: Sepsis with organ failure evidenced by HR>90, WBC:13K and Cr:2.3 -2/2 to UTI -cont IV Cefazolin Addendum entered and electronically signed by JAIRO BUSH MD 06/30/19 11:33: Depression -cont zoloft -no suicidal ideation Original Note: Assessment and Plan Assessment and plan: 79-year-old -[place] male with past medical history significant for prostate cancer status post radiation treatment presented to the emergency department complaining of hematuria. Hematuria -s/p cystoscopy -on cross drip -urology following Acute blood loss anemia -s/p clot evacuation by urology -status post blood transfusion with 2U of PRBCS -H/H improved, will monitor UTI -on IV cefazolin -wbc level trending down, will monitor -urine culture neg so far CHARO -Probably secondary to obstructive uropathy -CT abdomen/pelvis showed bilateral hydro-ureteronephrosis -cr level improving on IVF, will monitor -Nephrology following Metabolic acidosis -Likely secondary to the CHARO -improved Acute Respiratory distress post surgery -off continuous BiPAP DM2 -BG improved -Continue SSI and Lantus H/o platelet dysfunction -per urology note, 6 packs of platelets given in the PACU on 06/28 -s/p 1U of platelet infusion on 06/29 -will cont to monitor level Hyponatremia -improved Hypertension -uncontrolled -home anti-hypertensives resumed, will monitor BP CAD -stable HLD -cont statin BPH -cont prazosin H/o COPD/asthma with chronic hypoxemic respt failure -no acute exacerbation -cont 02 supplementation as needed with nightly BIPAP and neb tx H/o prostate cancer -for out-pt f/u H/o valve replacement -his home ASA on hold due to acute bleed Morbid obesity with BMI of 85.9 -lifestyle modification recommended DVT ppx: SCD due to acute bleed Disp: d/c per clinical course and clearance by urology Disposition: [id number] HOME [facility] Time spent for discharge: 35 mins Core Measure Documentation - Palliative Care Palliative Care/ Comfort Measures: Not Applicable Exam - Constitutional Vitals: Temp Pulse Resp BP Pulse Ox 98.4 F 69 18 138/59 97 07/01/19 11:32 07/01/19 11:32 07/01/19 11:32 07/01/19 11:32 07/01/19 11:32 Plan Activity: advance as tolerated, fall precautions Diet: diabetic Special Instructions: record daily BP diary, record blood sugar diary Care Plan Goals: Continue bermudez till evaluated by Urologist Plan of Treatment: Resolution of Hematuria Health Concerns: Patient with hematuria, and also on ASA secondary to heart valve. Will also need cardiology follow up Assessment: Weekly H/H and plt study till correction of labs Follow up with: DIANE PIERRE MD [Primary Care Provider] - 3-5 Days ANA SANCHEZ MD [Staff Physician] - 7 Days MATTHEW COOK MD [Staff Physician] - 7 Days Prescriptions: Ciprofloxacin HCl [Ciprofloxacin TAB] 500 mg PO Q12HR #14 tab traMADol [Ultram] 50 mg PO Q6HR PRN #14 tablet PRN Reason: Pain
== END 2019-07-01 16:39 | disposition home health service (06) | DRG 872 ==
LOC: SUATTDRO 01:22 → ED 01:22 → 2B-ACE 05:55 → 3B-SURG 23:46 → CC1 06-28 02:03 → 3B-SURG 06-30 14:18
PROVIDERS: ADMIT Internal Medicine; ATTEND Internal Medicine
PROC: 0TCB8ZZ Extirpation of Matter from Bladder, Via Natural or Artificial Opening Endoscopic (ICD-10-PCS; principal; 2019-06-27)
PROC: BT101ZZ Fluoroscopy of Bladder using Low Osmolar Contrast (ICD-10-PCS; 2019-06-27)
PROC: 0TCB8ZZ Extirpation of Matter from Bladder, Via Natural or Artificial Opening Endoscopic (ICD-10-PCS; 2019-06-28)
PROC: BT101ZZ Fluoroscopy of Bladder using Low Osmolar Contrast (ICD-10-PCS; 2019-06-28)
PROC: 30233R1 Transfusion of Nonautologous Platelets into Peripheral Vein, Percutaneous Approach (ICD-10-PCS; 2019-06-28)
PROC: 30233N1 Transfusion of Nonautologous Red Blood Cells into Peripheral Vein, Percutaneous Approach (ICD-10-PCS; 2019-06-28)
PROC: 5A09357 Assistance with Respiratory Ventilation, Less than 24 Consecutive Hours, Continuous Positive Airway Pressure (ICD-10-PCS; 2019-06-28)
PROC: 5A09357 Assistance with Respiratory Ventilation, Less than 24 Consecutive Hours, Continuous Positive Airway Pressure (ICD-10-PCS; 2019-06-29)
PROC: 5A09357 Assistance with Respiratory Ventilation, Less than 24 Consecutive Hours, Continuous Positive Airway Pressure (ICD-10-PCS; 2019-06-30)
DX: A41.9 Sepsis, unspecified organism (principal); N17.9 Acute kidney failure, unspecified; E87.2 Acidosis; D62 Acute posthemorrhagic anemia; E87.1 Hypo-osmolality and hyponatremia; N39.0 Urinary tract infection, site not specified; J96.11 Chronic respiratory failure with hypoxia; Z68.45 Body mass index [BMI] 70 or greater, adult; N13.30 Unspecified hydronephrosis; R65.20 Severe sepsis without septic shock; C61 Malignant neoplasm of prostate; E11.65 Type 2 diabetes mellitus with hyperglycemia; N13.9 Obstructive and reflux uropathy, unspecified; F32.9 Major depressive disorder, single episode, unspecified; I25.10 Atherosclerotic heart disease of native coronary artery without angina pectoris; E78.5 Hyperlipidemia, unspecified; J44.9 Chronic obstructive pulmonary disease, unspecified; E66.01 Morbid (severe) obesity due to excess calories; I50.9 Heart failure, unspecified; I11.0 Hypertensive heart disease with heart failure; M19.90 Unspecified osteoarthritis, unspecified site; N40.1 Benign prostatic hyperplasia with lower urinary tract symptoms; R33.8 Other retention of urine; D69.1 Qualitative platelet defects; G47.33 Obstructive sleep apnea (adult) (pediatric); R31.0 Gross hematuria; Z95.2 Presence of prosthetic heart valve; Z79.82 Long term (current) use of aspirin; Z79.899 Other long term (current) drug therapy; I25.2 Old myocardial infarction
CPT/HCPCS: 36415; 71045; 74176; 74430; 80048; 81001; 82962; 83735; 83970; 84100; 85007; 85025; 85610; 85730; 86850; 86900; 86901; 86920; 87086; 88304; 94640; 94660; 94760; 96374; 96375; 96376; G0378; A4217; A9270-GY; J0171; J0330; J0690; J1100; J1170; J1815; J1940; J2270; J2405; J3010; J7030; J7040; J7050; P9016; P9035; Q9967